=== PATIENT | male | born 1940 | race Caucasian/White ===

== ENCOUNTER 2023-11-03 17:39 | Emergency (ER) | payer MEDICARE, OTHER, SELFPAY ==
[2023-11-03 17:44] VITALS: BP 119/82
[2023-11-03] MEDS: PERCOCET 5/325 1 TABLET PO (18:41)
--- NOTE | 2023-11-03 19:10 | ED.MUSCINJ ---
Addendum entered and electronically signed by Rachid Mattson DO 11/03/23 22:13:
Wayne's called me states is not doing well at home
He apparently feels weak I encouraged her to bring him back in to be evaluated
Reviewed with nursing they concur that he was feeling well before he left, his shoulder pain almost completely resolved after the shoulder injection
Original Note:
HPI-Injury
General
Chief Complaint: Musculo-Skeletal Complaint
Source: patient and spouse
Exam Limitations: none
Time Seen by Provider: 11/03/23 18:31
Nursing documentation reviewed up to this point in time: agreed with
Travel History
Have you had any contact with someone who has COVID-19?: No
Do you have any symptoms of coronavirus? Fever > 100 degrees, chills, cough, shortness of breath, sore throat, loss of taste or smell, muscle aches, or headache?: No
History of Present Illness-Injury
Is this injury a work related problem?: No
Is pt an associate of [facility]?: No
Initial Injury comments:
83-year-old male prior stroke left-sided weakness very active exercises lift weights pain in his right shoulder for 2 or 3 days became increasingly painful today no fever no nausea or vomiting, no direct trauma though he does lift weights over his
head, he takes Plavix, never had anything like this before, no chest pain or shortness of breath
Past History
Past History
ED Past Medical History: Cancer, CVA and Hypercholesterolemia
ED Past Surgical History: Cardiac (Ablation) and Other
Social History
Tobacco: Non-smoker
Alcohol: Occasional
Drug: None
Personal:
Living: with family
Employment: Retired
Review of Systems
Review of Systems
All Other Systems: Not applicable
Constitutional: Denies fever or fatigue
EENT: Reports no symptoms
Respiratory: Reports no symptoms
Cardiac: Reports no symptoms
ABD/GI: Reports no symptoms
Musculoskeletal: Reports joint pain
Neurological: Reports no symptoms
Endocrine: Reports no symptoms
Phy Exam
Physical Exam
Physical Exam:
Physical Exam
General: 83 male afebrile looks uncomfortable
Neck: No jaundice midline trachea
Heart: Regular
Lungs: no acute respiratory distress.
Neuro: alert and oriented. no focal neurological deficits
Skin: no rash
Psychiatric: well kept. interactive and cooperative
Extremities: Tender in the right shoulder with painful range of motion no crepitance no warmth
Injury Course
Orders/Labs/Results
Orders:
Orders
11/03/23 17:48
CR Shoulder, Trauma - Right Urgent
Comment:
Reason For Exam: pain
11/03/23 18:38
Oxycodone/Acetaminophen [Percocet 5/325] 1 tablet PO NOW STA
11/03/23 18:49
Triamcinolone Acetonide [Kenalog-10] 10 mg INTRAARTIC NOW STA
Procedures
Incision/Drainage/Joint Aspiration
Right Shoulder:
Anethesia: ethyl chloride
Preparation: cleaned with Betadine
Type of procedure: injection
Nature of site: other (Bursitis)
Additional information:
Sterile technique, timeout, verbal consent, posterior approach
18-gauge needle, 2 cc of Kenalog 3 cc of lidocaine 3 cc of Marcaine
Patient tolerated the procedure well
MDM/Problems Addressed
Differential Diagnosis Includes:
Bursitis, overuse, doubt septic joint
MDM/Problems Addressed:
Right shoulder pain
Chronic conditions affecting care: Neurological disorder
Acute Exacerbation and/or Progression of Chronic Illness: Neurological disorder
*Radiology
Radiology exam reviewed: radiology read reviewed
*Pulse Oximetry
Patient hypoxic: no
*City Carrier Interpretation
Rate: City Carrier- N/A
*Critical Care Note
Total Time (30-74mins, 75-104mins- exclusive of procedures): Not Applicable
Update Note
Update Note:
Update patient still with pain after Percocet
Requesting an injection which she tolerated well updated
ED Attending Note
-
Portions of this chart may have been created with voice recognition software.� Occasional wrong word or��sound alike� substitutions may have occurred due to the inherent limitations of voice recognition software.
Discharge Plan
Departure
Patient Disposition: Home (Routine Discharge)
Date of Disposition: 11/03/23
Time of Disposition: 19:46
Patient with high blood pressure during this ER visit?: No
Condition: Good
Discharge Problem:
Acute shoulder bursitis
Instructions: Bursitis ED
Prescriptions:
New
oxycodone 5 mg tablet
5 mg PO Q8H PRN (Reason: Pain) Qty: 14 0RF
No Action
acetaminophen 325 MG tablet
650 mg PO Q6HPRN PRN (Reason: mild pain) 0RF
furosemide 20 MG tablet
20 mg PO DAILY Qty: 60 0RF
calcium carbonate 200 MG tablet,chewable
200 mg PO DAILY
fluoxetine 10 MG capsule
10 mg PO DAILY@1300
lisinopril 2.5 MG tablet
2.5 mg PO DAILY@1300
amiodarone [Pacerone] 200 MG tablet
100 mg PO DAILY
Patient Comments:
clopidogrel 75 MG tablet
75 mg PO DAILY Qty: 90 5RF
spironolactone 25 MG tablet
12.5 mg PO MOWEFR Qty: 60 5RF
Rx Instructions:
Take 1/2 tablet [id number]
multivitamin Tablet
1 tab PO DAILY
cyanocobalamin (vitamin B-12) [Vitamin B-12] 1,000 mcg Tablet
1,000 mcg PO DAILY
coenzyme Q10 [CoQ-10] 100 mg Capsule
400 mg PO DAILY
cholecalciferol (vitamin D3) [Vitamin D3] 50 mcg (2,000 unit) Capsule
50 mcg PO DAILY
omega 6-ayx-qfw-fish oil [Fish Oil] 1,200 (144-216) mg Capsule
2 cap PO DAILY
psyllium husk [Metamucil] 0.4 gram Capsule
0.8 g PO QPM
aspirin 81 MG tablet,delayed release (DR/EC)
81 mg PO QPM
metoprolol succinate 25 MG tablet extended release 24 hr
12.5 mg PO DAILY
rosuvastatin [Crestor] 40 MG tablet
40 mg PO DAILY@1300
Interventions
Interventions:
*Risk Screen - Suicide Last Done: 11/03/23 18:36
*General Assessment Last Done: 11/03/23 18:36
*Neglect/Abuse Screening Last Done: 11/03/23 18:36
ED- Fall Risk Assessment Last Done: 11/03/23 18:37
*ED COVID-19 Vaccine History Last Done: 11/03/23 17:44
ED-Musculoskeletal Assessment Last Done: 11/03/23 18:37
== END 2023-11-03 20:46 | disposition home or self-care (01) ==
LOC: EMR 17:39
PROVIDERS: EMERGENCY PHYSICIAN Emergency Medicine; FAMILY PHYSICIAN Family Medicine
DX: M75.51 Bursitis of right shoulder (principal)
CPT/HCPCS: 99284; 64400; 73030

== ENCOUNTER 2023-11-03 21:53 | Emergency (ER) | payer MEDICARE, OTHER, SELFPAY ==
[2023-11-03 21:58] VITALS: BP 99/75
--- NOTE | 2023-11-03 22:12 | ED.GENMED ---
History of Present Illness
General
Chief Complaint: Weakness
Source: patient, records and spouse
Exam Limitations: none
Time Seen by Provider: 11/03/23 22:24
Nursing documentation reviewed up to this point in time: agreed with
Travel History
Have you had any contact with someone who has COVID-19?: No
Do you have any symptoms of coronavirus? Fever > 100 degrees, chills, cough, shortness of breath, sore throat, loss of taste or smell, muscle aches, or headache?: No
History of Present Illness
History of Present Illness:
83-year-old male seen by me earlier today with bursitis of the right shoulder treated with Percocet and a steroid/lidocaine/bupivacaine intra-articular injection was feeling better at time of discharge called me states he was unsteady she could
not get him up I recommended that she bring her back here to be evaluated, here he looks comfortable, smiling states he feels much better, no fever chills no chest pain no headaches moving all extremities though his right shoulder still is giving
him some pain his pacemaker, suffers from urinary incontinence,
Past History
Past History
ED Past Medical History: Cancer, CVA and Hypercholesterolemia
ED Past Surgical History: Cardiac (Ablation) and Other
Social History
Tobacco: Non-smoker
Alcohol: Occasional
Drug: None
Personal:
Living: with family
Employment: Retired
Review of Systems
Review of Systems
All Other Systems: Not applicable
Constitutional: Denies fever or fatigue
EENT: Reports no symptoms
Respiratory: Reports no symptoms
Cardiac: Reports no symptoms
ABD/GI: Reports no symptoms
: Reports no symptoms
Musculoskeletal: Reports no symptoms
Neurological: Reports dizzy and weakness; Denies headache
Phy Exam
Physical Exam
Physical Exam:
Physical Exam
General: no apparent distress, not acutely ill
Neck: No tongue biting smiling
Heart: Regular
Lungs: no acute respiratory distress. clear bilaterally
Abdomen: Nontender
Neuro: Moving all extremities
Skin: no rash
Psychiatric: cooperative
Extremities: Mild pain with range of motion of the right shoulder
Course
Orders/Labs/Results
Orders:
Orders
11/03/23 22:06
Electrocardiogram (*1) Urgent
Reason for Study: Other
Other Reason for Exam: Possible Sepsis
EKG- Treatment ONCE
11/03/23 22:29
Complete Blood Count/With Diff Urgent
Comprehensive Metabolic Panel Urgent
Troponin I Urgent
11/03/23 22:31
Bedside Glucose- Treatment ONCE
Cardiac Monitoring- Treatment ONCE
0.9% Sodium Chloride 500 ml [Nss] 500 ml IV BOLUS
11/03/23 23:28
Urinalysis Reflex To Culture Urgent
Date Specimen was Collected: 11/03/23
Time Specimen was Collected: 22:44
11/04/23 00:00
CT Head W/o Iv Contrast Urgent
Reason For Exam: weakness
Abnormal Lab Results
11/03/23
22:29
WBC 11.3 H 10^3/uL
(4.8-10.8)
RBC 4.52 L 10^6/uL
(4.70-6.10)
Hct 38.3 L %
(39.0-52.0)
Abs Immat Gran (auto) 0.1 H 10^3/uL
(0-0.05)
Absolute Neuts (auto) 9.7 H 10^3/uL
(1.4-6.5)
Absolute Lymphs (auto) 0.7 L 10^3/uL
(1.2-3.4)
Absolute Monos (auto) 0.9 H 10^3/uL
(0.1-0.6)
Neutrophils % 85.5 H %
(42.2-75.2)
Lymphocytes % 6.1 L %
(20.5-51.1)
Sodium 132 L mmol/L
(135-145)
Glucose 136 H mg/dl
(70-99)
11/03/23 22:29
11/03/23 22:29
Vital Signs
Initial and Last Documented VS:
Initial Vital Signs
Temp Pulse Resp BP Pulse Ox
98 F 85 14 99/75 95
11/03/23 21:58 11/03/23 21:58 11/03/23 21:58 11/03/23 21:58 11/03/23 21:58
Last Documented Vital Signs
Temp Pulse Resp BP Pulse Ox
98 F 72 22 105/66 94
11/03/23 21:58 11/03/23 22:45 11/03/23 22:45 11/03/23 22:34 11/03/23 22:45
MDM/Problems Addressed
Differential Diagnosis Includes:
Reaction to Percocet toxic metabolic deconditioning, doubt stroke possible UTI electrolyte abnormality
MDM/Problems Addressed:
Ataxia
Chronic conditions affecting care: Neurological disorder
Acute Exacerbation and/or Progression of Chronic Illness: Neurological disorder
*Radiology
Radiology exam reviewed: preliminary read by ED provider
*Pulse Oximetry
Patient hypoxic: no
*EKG
Interpreted by ED Provider?: Yes
Interpretation: abnormal
Comparison EKG: no comparison EKG present
Heart Rate: 78
Rate: normal
Rhythm: ventricular paced
Ischemia: non-specific ST changes
*Area Coordinator Interpretation
Rate: normal
Interpretation: normal
Heart Rate: 78
Rhythm: ventricular paced
*Critical Care Note
Total Time (30-74mins, 75-104mins- exclusive of procedures): Not Applicable
Update Note
Update Note:
Update patient much improved from prior visit strong suspicion that his Percocet to be thorough we will check urine CT discussed extensively with
ED Attending Note
-
Portions of this chart may have been created with voice recognition software.� Occasional wrong word or��sound alike� substitutions may have occurred due to the inherent limitations of voice recognition software.
Discharge Plan
Departure
Patient Disposition: Home (Routine Discharge)
Date of Disposition: 11/03/23
Time of Disposition: 23:55
Patient with high blood pressure during this ER visit?: No
Condition: Good
Discharge Problem:
Dizziness
Instructions: Dizziness
Prescriptions:
No Action
acetaminophen 325 MG tablet
650 mg PO Q6HPRN PRN (Reason: mild pain) 0RF
furosemide 20 MG tablet
20 mg PO DAILY Qty: 60 0RF
calcium carbonate 200 MG tablet,chewable
200 mg PO DAILY
fluoxetine 10 MG capsule
10 mg PO DAILY@1300
lisinopril 2.5 MG tablet
2.5 mg PO DAILY@1300
amiodarone [Pacerone] 200 MG tablet
100 mg PO DAILY
Patient Comments:
clopidogrel 75 MG tablet
75 mg PO DAILY Qty: 90 5RF
spironolactone 25 MG tablet
12.5 mg PO MOWEFR Qty: 60 5RF
Rx Instructions:
Take 1/2 tablet [id number]
multivitamin Tablet
1 tab PO DAILY
cyanocobalamin (vitamin B-12) [Vitamin B-12] 1,000 mcg Tablet
1,000 mcg PO DAILY
coenzyme Q10 [CoQ-10] 100 mg Capsule
400 mg PO DAILY
cholecalciferol (vitamin D3) [Vitamin D3] 50 mcg (2,000 unit) Capsule
50 mcg PO DAILY
omega 2-qqi-hln-fish oil [Fish Oil] 1,200 (144-216) mg Capsule
2 cap PO DAILY
psyllium husk [Metamucil] 0.4 gram Capsule
0.8 g PO QPM
aspirin 81 MG tablet,delayed release (DR/EC)
81 mg PO QPM
metoprolol succinate 25 MG tablet extended release 24 hr
12.5 mg PO DAILY
rosuvastatin [Crestor] 40 MG tablet
40 mg PO DAILY@1300
oxycodone 5 mg tablet
5 mg PO Q8H PRN (Reason: Pain) Qty: 14 0RF
Referrals:
Judson Alonso MD [Family Provider] -
Activity Restrictions/Additional Instructions:
Follow-up with orthopedics, if you need oxycodone for pain use half a pill every 8 hours with food in your stomach
Interventions
Interventions:
*Risk Screen - Suicide Last Done: 11/03/23 21:58
*General Assessment Last Done: 11/03/23 21:58
*Neglect/Abuse Screening Last Done: 11/03/23 21:58
ED- Fall Risk Assessment Last Done: 11/03/23 22:37
ED- Cardiac Assessment Last Done: 11/03/23 22:37
ED- Neurological Assessment Last Done: 11/03/23 22:37
ED- Pulmonary Assessment Last Done: 11/03/23 23:38
[2023-11-03 22:34] VITALS: BP 105/66
[2023-11-03 22:36] VITALS: BMI 24.8
[2023-11-03 22:39] LABS: % Basophils 0.3 % (0-2); % Eosinophils 0.2 % (0-6); % Immature Granulocytes 0.4 % (0-0.5); % Lymphocytes 6.1 % (20.5-51.1); % Monocytes 7.5 % (1.7-9.3); % Neutrophils 85.5 % (42.2-75.2); Absolute Immature Granulocytes 0.1 10^3/uL (0-0.05); Absolute Lymphocytes 0.7 10^3/uL (1.2-3.4); Absolute Monocytes 0.9 10^3/uL (0.1-0.6); Absolute Neutrophils 9.7 10^3/uL (1.4-6.5); Hematocrit 38.3 % (39.0-52.0); Hemoglobin 13.3 g/dL (13.0-18.0); Mean Corp Hgb Conc. 34.7 g/dL (33.0-37.0); Mean Corpuscular Hgb 29.4 pg (27.0-31.0); Mean Corpuscular Volume 84.7 fL (80.0-94.0); Mean Platelet Volume 8.2 fL (7.4-10.4); Nucleated Red Blood Cells % 0 % (-); Platelet Count 180 10^3/uL (130-400); Red Blood Cell Count 4.52 10^6/uL (4.70-6.10); Red Cell Dist. Width 14.2 % (11.5-14.5); White Blood Cell Count 11.3 10^3/uL (4.8-10.8)
[2023-11-03 23:00] VITALS: BP 97/39
[2023-11-03 23:06] LABS: ALT (SGPT) 25 U/L (0-50); AST (SGOT) 33 U/L (17-59); Albumin 4.1 g/dl (3.5-5.0); Alkaline Phosphatase 79 U/L (38-126); Blood Urea Nitrogen 16 mg/dl (9-20); Calcium 8.8 mg/dl (8.4-10.2); Carbon Dioxide 26 mmol/L (22-30); Chloride 98 mmol/L (98-107); Estimated Creatinine Clearance 60 ml/min; Glucose 136 mg/dl (70-99); Potassium 3.8 mmol/L (3.5-5.1); Sodium 132 mmol/L (135-145); Total Bilirubin 0.8 mg/dl (0.2-1.3); Total Protein 7.3 g/dl (6.3-8.2); eGFR > 60.00
[2023-11-03 23:17] LABS: Troponin I < 0.012 ng/ml
[2023-11-03] MEDS: NSS 500 IV (23:22)
[2023-11-04 00:03] LABS: Urine Albumin Trace (Neg - Trace); Urine Bilirubin Negative (Negative); Urine Character Clear (Clear); Urine Color Yellow; Urine Glucose Negative (Negative); Urine Ketone 3+ (Negative); Urine Leukocyte Negative (Negative); Urine Nitrite Negative (Negative); Urine Occult Blood Negative (Negative); Urine Urobilinogen Negative (Neg - 1+)
[2023-11-04 01:01] VITALS: BP 108/48
--- NOTE | 2023-11-04 01:26 | EDRN ---
Patient was able to ambulate around room with ease, no further complaints, will be discharged home.
== END 2023-11-04 01:46 | disposition home or self-care (01) ==
LOC: EMR 21:53
PROVIDERS: EMERGENCY PHYSICIAN Emergency Medicine; FAMILY PHYSICIAN Family Medicine
DX: R53.1 Weakness (principal); R42 Dizziness and giddiness; Z86.73 Personal history of transient ischemic attack (TIA), and cerebral infarction without residual deficits
CPT/HCPCS: 99285; 96360; 96361; 70450; 80053; 81003; 84484; 85025; 93005

== ENCOUNTER 2024-02-21 10:48 | Outpatient (RCR) | payer MEDICARE, OTHER, SELFPAY | END 2024-02-21 23:59 | disposition home or self-care (01) | LOC: RPT 10:48 | PROVIDERS: ATTENDING PHYSICIAN Family Medicine | DX: F01.53 Vascular dementia, unspecified severity, with mood disturbance (principal); I69.854 Hemiplegia and hemiparesis following other cerebrovascular disease affecting left non-dominant side (principal); Z73.6 Limitation of activities due to disability; R26.89 Other abnormalities of gait and mobility; I69.890 Apraxia following other cerebrovascular disease; I69.818 Other symptoms and signs involving cognitive functions following other cerebrovascular disease | CPT/HCPCS: 96125; 97110; 97112; 97116; 97129; 97130; 97163; 97530 ==

== ENCOUNTER 2024-03-24 12:30 | Outpatient (RCR) | payer MEDICARE, OTHER, SELFPAY | END 2024-03-24 23:59 | disposition home or self-care (01) | LOC: RPT 12:30 | PROVIDERS: ATTENDING PHYSICIAN Family Medicine | DX: F01.53 Vascular dementia, unspecified severity, with mood disturbance (principal); I69.319 Unspecified symptoms and signs involving cognitive functions following cerebral infarction (principal); I69.311 Memory deficit following cerebral infarction; R26.89 Other abnormalities of gait and mobility; I69.328 Other speech and language deficits following cerebral infarction; I69.854 Hemiplegia and hemiparesis following other cerebrovascular disease affecting left non-dominant side; R48.2 Apraxia; I69.890 Apraxia following other cerebrovascular disease; I69.398 Other sequelae of cerebral infarction; I69.818 Other symptoms and signs involving cognitive functions following other cerebrovascular disease; Z73.6 Limitation of activities due to disability; I69.354 Hemiplegia and hemiparesis following cerebral infarction affecting left non-dominant side | CPT/HCPCS: 97110; 97112; 97116; 97129; 97130; 97530 ==

== ENCOUNTER 2024-04-11 12:21 | Outpatient (RCR) | payer MEDICARE, OTHER, SELFPAY | END 2024-04-11 23:59 | disposition home or self-care (01) | LOC: RPT 12:21 | PROVIDERS: ATTENDING PHYSICIAN Family Medicine | DX: I69.354 Hemiplegia and hemiparesis following cerebral infarction affecting left non-dominant side (principal); I69.390 Apraxia following cerebral infarction; I69.854 Hemiplegia and hemiparesis following other cerebrovascular disease affecting left non-dominant side; R26.89 Other abnormalities of gait and mobility; Z73.6 Limitation of activities due to disability; F01.53 Vascular dementia, unspecified severity, with mood disturbance; I69.890 Apraxia following other cerebrovascular disease; I69.818 Other symptoms and signs involving cognitive functions following other cerebrovascular disease | CPT/HCPCS: 97110; 97112; 97129; 97130; 97530 ==

== ENCOUNTER 2024-05-21 05:15 | Emergency (ER) | payer MEDICARE, OTHER, SELFPAY ==
[2024-05-21] VITALS (11 sets, daily range): BP systolic 80–120; BP diastolic 52–68; PULSE 60–76; O2SAT 96
[2024-05-21 05:42] LABS: % Basophils 0.4 % (0-2); % Immature Granulocytes 0.1 % (0-0.5); % Neutrophils 74.5 % (42.2-75.2); Absolute Eosinophils 0.1 10^3/uL (0-0.7); Absolute Lymphocytes 0.8 10^3/uL (1.2-3.4); Absolute Monocytes 1.1 10^3/uL (0.1-0.6); Absolute Neutrophils 5.7 10^3/uL (1.4-6.5); Hematocrit 40.2 % (39.0-52.0); Hemoglobin 13.7 g/dL (13.0-18.0); Mean Corp Hgb Conc. 34.1 g/dL (33.0-37.0); Mean Corpuscular Hgb 29.8 pg (27.0-31.0); Mean Corpuscular Volume 87.6 fL (80.0-94.0); Mean Platelet Volume 8.8 fL (7.4-10.4); Nucleated Red Blood Cells % 0 % (-); Platelet Count 169 10^3/uL (130-400); Red Blood Cell Count 4.59 10^6/uL (4.70-6.10); Red Cell Dist. Width 14.9 % (11.5-14.5); White Blood Cell Count 7.7 10^3/uL (4.8-10.8)
[2024-05-21 06:10] LABS: ALT (SGPT) 23 U/L (0-50); AST (SGOT) 31 U/L (17-59); Albumin 4.1 g/dl (3.5-5.0); Alkaline Phosphatase 75 U/L (38-126); Blood Urea Nitrogen 15 mg/dl (9-20); Calcium 9.1 mg/dl (8.4-10.2); Carbon Dioxide 27 mmol/L (22-30); Chloride 100 mmol/L (98-107); Estimated Creatinine Clearance 50 ml/min; Glucose 110 mg/dl (70-99); Potassium 3.7 mmol/L (3.5-5.1); Sodium 140 mmol/L (135-145); Total Bilirubin 0.7 mg/dl (0.2-1.3); Total Protein 7.2 g/dl (6.3-8.2); eGFR > 60.00
[2024-05-21 06:17] LABS: COVID-19 Antigen Positive (Negative)
[2024-05-21 06:20] LABS: Lactic Acid 0.9 mmol/L (0.7-2.0)
[2024-05-21] MEDS: TYLENOL 650 MG PO (06:28)
--- NOTE | 2024-05-21 06:51 | ED.GENMED ---
History of Present Illness
General
Chief Complaint: Change in Mental Status
Source: patient and spouse
Exam Limitations: none
Time Seen by Provider: 05/21/24 06:37
Nursing documentation reviewed up to this point in time: agreed with
History of Present Illness
History of Present Illness:
84-year-old male very pleasant with his is also very pleasant history of stroke right side of left-sided weakness has been rehabilitating making progress, URI for the past day or so yesterday had some weakness, last night woke up restless with
some confusion brought to the ER had fever subsequently tested positive for COVID did get a flu shot this year has not had a COVID shot yet, patient tells me he feels well, states he looks weak, is asking about antiviral medicines, states
she had a hard time getting him out of bed
Past History
Past History
ED Past Medical History: Cancer, CVA and Hypercholesterolemia
ED Past Surgical History: Cardiac (Ablation) and Other
Social History
Tobacco: Non-smoker
Alcohol: Occasional
Drug: None
Personal:
Living: with family
Employment: Retired
Review of Systems
Review of Systems
All Other Systems: Not applicable
Constitutional: Reports fever and fatigue
EENT: Reports no symptoms
Respiratory: Reports cough
Cardiac: Reports no symptoms
ABD/GI: Reports no symptoms
: Reports no symptoms
Neurological: Reports weakness
Phy Exam
Physical Exam
Physical Exam:
Physical Exam
General: Febrile elderly male in no acute
Neck: No tongue bite no jaw
Heart: Regular
Lungs: no acute respiratory distress. Diminished bilateral
Abdomen: Nontender
Neuro: alert and oriented. Left-sided weak
Skin: no rash
Psychiatric: cooperative
Extremities: no edema.
Sepsis
Sepsis Screening
Sepsis Assessment: Sepsis Ruled Out
Sepsis Screen
Sepsis Screen: Sepsis Ruled Out
Date: 05/21/24
Time: 09:23
Course
Orders/Labs/Results
Orders:
Orders
05/21/24 05:22
Urine Reflex Culture from UA [Urinalysis Reflex To Culture] Urgent
Date Specimen was Collected: 05/21/24
Time Specimen was Collected: 05:23
05/21/24 05:24
Complete Blood Count/With Diff Urgent
Comprehensive Metabolic Panel Urgent
05/21/24 05:44
EKG [Electrocardiogram (*1)] Urgent
Reason for Study: Fatigue / Weakness
EKG- Treatment ONCE
05/21/24 05:55
COVID-19 Antigen Urgent
Source: Nasal Swab
Lactate Level [Lactic Acid] Urgent
05/21/24 06:26
Acetaminophen [Tylenol] 650 mg .ROUTE .STK-MED ONE
05/21/24 06:28
Acetaminophen [Tylenol] 650 mg PO NOW STA
05/21/24 06:48
0.9% Sodium Chloride 1000 ml [Nss] 1,000 ml IV BOLUS
CR Chest - 2 Views Urgent
Comment:
Reason For Exam: fever
05/21/24 07:57
Physical Therapy Consult [Pt Eval And Treat] Urgent
Activity Level: Out of Bed-Early Mobility
Abnormal Lab Results
05/21/24 05/21/24
05:24 05:55
RBC 4.59 L 10^6/uL
(4.70-6.10)
RDW 14.9 H %
(11.5-14.5)
Absolute Lymphs (auto) 0.8 L 10^3/uL
(1.2-3.4)
Absolute Monos (auto) 1.1 H 10^3/uL
(0.1-0.6)
Lymphocytes % 10.0 L %
(20.5-51.1)
Monocytes % 14.0 H %
(1.7-9.3)
Glucose 110 H mg/dl
(70-99)
SARS-CoV-2 Antigen Positive A
(Negative)
05/21/24 05:24
05/21/24 05:24
Vital Signs
Initial and Last Documented VS:
Initial Vital Signs
Temp Pulse Resp BP Pulse Ox
100.7 F H 74 20 120/68 94
05/21/24 05:17 05/21/24 05:17 05/21/24 05:17 05/21/24 05:17 05/21/24 05:17
Last Documented Vital Signs
Temp Pulse Resp BP Pulse Ox
100.7 F H 96 16 101/61 95
05/21/24 05:17 05/21/24 09:00 05/21/24 09:00 05/21/24 08:54 05/21/24 08:46
MDM/Problems Addressed
Differential Diagnosis Includes:
Viral syndrome COVID flu pneumonia dehydration recrudescence
MDM/Problems Addressed:
Fever confusion
Chronic conditions affecting care: Neurological disorder
Acute Exacerbation and/or Progression of Chronic Illness: Neurological disorder
*Radiology
Radiology exam reviewed: preliminary read by ED provider
*Pulse Oximetry
Patient hypoxic: no
*Environmental Compliance Manager Interpretation
Rate: Environmental Compliance Manager- N/A
*Critical Care Note
Total Time (30-74mins, 75-104mins- exclusive of procedures): Not Applicable
Update Note
Update Note:
Update patient nontoxic, does have multiple comorbid conditions he is elderly symptoms appear consistent with COVID, confirmed by nasal swab start Tylenol fluids check chest x-ray, will review his outpatient meds with pharmacy to see if he is a
candidate for Paxlovid, long conversation with to discuss plan of care
Meds reviewed numerous interactions including Plavix amiodarone statin will not order Paxlovid at this time
Update 920 reviewed with physical therapy cleared for discharge, again will review with
ED Attending Note
-
Portions of this chart may have been created with voice recognition software.� Occasional wrong word or��sound alike� substitutions may have occurred due to the inherent limitations of voice recognition software.
Discharge Plan
Departure
Patient Disposition: Home (Routine Discharge)
Date of Disposition: 05/21/24
Time of Disposition: :
Patient with high blood pressure during this ER visit?: No
Covid-19: Confirmed COVID-19
Discharge Problem:
COVID
Instructions: Coronavirus Discharge with Telephone Follow Up, COVID-19 ED, COVID-19 in adults - Discharge instructions
Prescriptions:
No Action
acetaminophen 325 MG tablet
650 mg PO Q6HPRN PRN (Reason: mild pain) 0RF
furosemide 20 MG tablet
20 mg PO DAILY Qty: 60 0RF
calcium carbonate 200 MG tablet,chewable
200 mg PO DAILY
fluoxetine 10 MG capsule
10 mg PO DAILY@1300
lisinopril 2.5 MG tablet
2.5 mg PO DAILY@1300
amiodarone [Pacerone] 200 MG tablet
100 mg PO DAILY
Patient Comments:
clopidogrel 75 MG tablet
75 mg PO DAILY Qty: 90 5RF
spironolactone 25 MG tablet
12.5 mg PO MOWEFR Qty: 60 5RF
Rx Instructions:
Take 1/2 tablet agdjmy-sxr-eulmyi
multivitamin Tablet
1 tab PO DAILY
cyanocobalamin (vitamin B-12) [Vitamin B-12] 1,000 mcg Tablet
1,000 mcg PO DAILY
coenzyme Q10 [CoQ-10] 100 mg Capsule
400 mg PO DAILY
cholecalciferol (vitamin D3) [Vitamin D3] 50 mcg (2,000 unit) Capsule
50 mcg PO DAILY
omega 7-kze-cgp-fish oil [Fish Oil] 1,200 (144-216) mg Capsule
2 cap PO DAILY
psyllium husk [Metamucil] 0.4 gram Capsule
0.8 g PO QPM
aspirin 81 MG tablet,delayed release (DR/EC)
81 mg PO QPM
metoprolol succinate 25 MG tablet extended release 24 hr
12.5 mg PO DAILY
rosuvastatin [Crestor] 40 MG tablet
40 mg PO DAILY@1300
oxycodone 5 mg tablet
5 mg PO Q8H PRN (Reason: Pain) Qty: 14 0RF
Referrals:
Judson Alonso MD [Family Provider] - Next open appointment
Activity Restrictions/Additional Instructions:
Tylenol every 4 hours for fever
Encourage Wayne to drink plenty of fluids
Interventions
Interventions:
*Risk Screen - Suicide Last Done: 05/21/24 05:17
*General Assessment Last Done: 05/21/24 05:17
*Neglect/Abuse Screening Last Done: 05/21/24 05:17
ED- Fall Risk Assessment Last Done: 05/21/24 06:17
*ED COVID-19 Vaccine History Last Done: 05/21/24 05:57
ED- Pulmonary Assessment Last Done: 05/21/24 06:17
ED- Neurological Assessment Last Done: 05/21/24 06:17
ED- Cardiac Assessment Last Done: 05/21/24 06:17
ED Swallowing Screen Last Done: 05/21/24 06:17
Discharge Date and Time
Print Language: CHINESE
[2024-05-21] MEDS: NSS 1000 IV (07:06)
== END 2024-05-21 10:46 | disposition home or self-care (01) ==
LOC: EMR 05:15
PROVIDERS: Student in an Organized Health Care Education/Training Program; EMERGENCY PHYSICIAN Emergency Medicine; FAMILY PHYSICIAN Family Medicine
DX: U07.1 COVID-19 (principal); E78.00 Pure hypercholesterolemia, unspecified; I69.354 Hemiplegia and hemiparesis following cerebral infarction affecting left non-dominant side
CPT/HCPCS: 99282; 71046; 80053; 83605; 85025; 87811; 93005

== ENCOUNTER 2024-05-23 09:06 | Inpatient (IN) | payer MEDICARE, OTHER, SELFPAY ==
[2024-05-21 19:36] VITALS: BP 108/60
--- NOTE | 2024-05-21 20:51 | ED.GENMED ---
History of Present Illness
General
Chief Complaint: Social Service Referral
Time Seen by Provider: 05/21/24 20:51
History of Present Illness
History of Present Illness:
HPI: The patient came here around 4:00 this morning by ambulance due to a change in mental status. Throughout his stay in the emergency department this morning, he was diagnosed with COVID. Physical therapy saw him and felt that he may be able to
go home. However this evening, could not safely care for him. They called their doctor, Dr. Alonso PMD wanted him to come in here to be admitted as she cannot safely care for him.
EXAM:
GENERAL: Appears in no distress but appears generally weak and debilitated, borderline febrile
HEENT: Moist oral mucosa
CARDIOVASCULAR: Regular rate and rhythm
PULMONARY: No respiratory distress, breathing is nonlabored, equal and clear breath sounds
ABDOMEN: Soft and nontender with no peritoneal signs
NEUROLOGIC: The patient has evidence of dementia, not oriented to month or place, strength is weak on the left related to prior stroke
EXTREMITIES: Decreased active range of motion to the left upper and lower extremities
PYSCHIATRIC: Very limited historian, poor insight and judgment
TIME OF INITIAL ENCOUNTER: 9 PM
NUMBER AND COMPLEXITY OF PROBLEMS ADDRESSED AT THE ENCOUNTER
� Chronic conditions affecting care: Dementia, CVA with left-sided weakness, cardiomyopathy, CHF, CAD, prostate cancer
� Acute Exacerbation and/or Progression of Chronic Illness: This is an acute but worsening problem
� Differential Diagnosis includes: Failure to thrive, weakness related to COVID, intracranial pathology, worsening dementia
AMOUNT AND/OR COMPLEXITY OF DATA TO BE REVIEWED AND ANALYZED
� I performed an independent evaluation of and my interpretation is:
EKG:
CT: CT brain shows no acute abnormality but does show the old right-sided stroke
X-rays:
Laboratory Studies: Urinalysis shows trace ketones and blood but no clear sign of infection
Other:
� Review of other/old records: I reviewed the notes from earlier today including the CBC and chemistries that were relatively unremarkable
� Clinical information was obtained by an independent historian: I spoke to the at bedside
� Prescriptions/Medications Considered but not given:
� Further testing considered but not performed:
RISK OF COMPLICATIONS AND/OR MORBIDITY OR MORTALITY OF PATIENT MANAGEMENT
� Social determinants of health affecting care: Lives at home, is cared for by the who feels that she cannot care for him
� Discussion with other providers: Hospitalist, Dr. Gonzalez for admission
� Escalation of care including admission/observation vs risk of discharge considered: The patient appears rather weak and debilitated, he has continued to worsen throughout the day after being discharged from the emergency
department. feels that he needs to stay in the hospital and she tells me that his primary care doctor, Dr. Alonso also want him to stay. Suspect that weakness is at least partially related to COVID. Although he does have some heart failure,
he does not appear to be in acute pulmonary edema and may be slightly dehydrated as he did have some ketones in the urine, therefore was given a little bit of IV fluids.
Past History
Past History
ED Past Medical History: Cancer, CVA and Hypercholesterolemia
ED Past Surgical History: Cardiac (Ablation) and Other
Social History
Tobacco: Non-smoker
Alcohol: Occasional
Drug: None
Personal:
Living: with family
Employment: Retired
Phy Exam
Physical Exam
Physical Exam:
See HPI
Course
Orders/Labs/Results
Orders:
Orders
05/21/24 21:01
CT Head W/o Iv Contrast Urgent
Comment:
Reason For Exam: alt ms
05/21/24 21:38
Urinalysis Reflex To Culture Urgent
Date Specimen was Collected: 05/21/24
Time Specimen was Collected: 21:37
Urine Microscopic Reflex Cult Urgent
Urine Culture Urgent
SUHAS Source: U
Specimen Description:
Date Specimen was Collected: 05/21/24
Time Specimen was Collected: 21:37
05/21/24 21:46
0.9% Sodium Chloride 500 ml [Nss] 500 ml IV BOLUS
Abnormal Lab Results
05/21/24
21:38
Urine Ketones Trace A
(Negative)
Ur Occult Blood Reflex 4+ A
(Negative)
Leukocyte Esterase Rfl Trace A
(Negative)
Urine RBC 30-40 A /HPF
(0-2)
Urine Bacteria (Reflex) Many A
(Negative)
Urine Albumin (Reflex) 1+ A
(Neg - Trace)
Vital Signs
Initial and Last Documented VS:
Initial Vital Signs
Temp Pulse Resp BP Pulse Ox
100.0 F 72 20 108/60 96
05/21/24 19:36 05/21/24 19:36 05/21/24 19:36 05/21/24 19:36 05/21/24 19:36
Last Documented Vital Signs
Temp Pulse Resp BP Pulse Ox
100.0 F 72 20 108/60 96
05/21/24 19:36 05/21/24 19:36 05/21/24 19:36 05/21/24 19:36 05/21/24 19:36
*Critical Care Note
Total Time (30-74mins, 75-104mins- exclusive of procedures): Not Applicable
ED Attending Note
-
Portions of this chart may have been created with voice recognition software.� Occasional wrong word or��sound alike� substitutions may have occurred due to the inherent limitations of voice recognition software.
Discharge Plan
Departure
Prescriptions:
No Action
acetaminophen 325 MG tablet
650 mg PO Q6HPRN PRN (Reason: mild pain) 0RF
furosemide 20 MG tablet
20 mg PO DAILY Qty: 60 0RF
calcium carbonate 200 MG tablet,chewable
200 mg PO DAILY
fluoxetine 10 MG capsule
10 mg PO DAILY@1300
lisinopril 2.5 MG tablet
2.5 mg PO DAILY@1300
amiodarone [Pacerone] 200 MG tablet
100 mg PO DAILY
Patient Comments:
clopidogrel 75 MG tablet
75 mg PO DAILY Qty: 90 5RF
spironolactone 25 MG tablet
12.5 mg PO MOWEFR Qty: 60 5RF
Rx Instructions:
Take 1/2 tablet [id number]-etrzay
multivitamin Tablet
1 tab PO DAILY
cyanocobalamin (vitamin B-12) [Vitamin B-12] 1,000 mcg Tablet
1,000 mcg PO DAILY
coenzyme Q10 [CoQ-10] 100 mg Capsule
400 mg PO DAILY
cholecalciferol (vitamin D3) [Vitamin D3] 50 mcg (2,000 unit) Capsule
50 mcg PO DAILY
omega 3-pag-qjj-fish oil [Fish Oil] 1,200 (144-216) mg Capsule
2 cap PO DAILY
psyllium husk [Metamucil] 0.4 gram Capsule
0.8 g PO QPM
aspirin 81 MG tablet,delayed release (DR/EC)
81 mg PO QPM
metoprolol succinate 25 MG tablet extended release 24 hr
12.5 mg PO DAILY
rosuvastatin [Crestor] 40 MG tablet
40 mg PO DAILY@1300
oxycodone 5 mg tablet
5 mg PO Q8H PRN (Reason: Pain) Qty: 14 0RF
Referrals:
UNKNOWN - PT DOES,NOT KNOW [Unknown Provider] -
Interventions
Interventions:
*Risk Screen - Suicide Last Done: 05/21/24 19:34
Discharge Date and Time
Print Language: ITALIAN
[2024-05-21 21:43] LABS: Urine Albumin 1+ (Neg - Trace); Urine Bilirubin Negative (Negative); Urine Character Clear (Clear); Urine Color Yellow; Urine Glucose Negative (Negative); Urine Ketone Trace (Negative); Urine Leukocyte Trace (Negative); Urine Nitrite Negative (Negative); Urine Occult Blood 4+ (Negative); Urine Urobilinogen Negative (Neg - 1+)
[2024-05-21 21:56] LABS: Urine Mucus Moderate
[2024-05-21 21:57] LABS: Urine Bacteria Many (Negative); Urine Red Blood Cell 30-40 /HPF (0-2)
[2024-05-21] MEDS: NSS 500 IV (22:04)
[2024-05-21 22:20] VITALS: BP 89/54
[2024-05-21 22:31] VITALS: BMI 24.1
--- NOTE | 2024-05-21 22:59 | HPS.HSE ---
Family Physician
-
Family Physician: Judson Alonso
Chief Complaint
-
Weakness / Unsteady Gait
History of Present Illness
Patient is an 84y M with PMH significant for prostate cancer, VT s/p ablation, ASCVD and chronic gait dysfunction who presents to ED complaining of weakness and unsteady gait. states that patient has been more weak and unsteady than usual
for the past 4-5 days or so. Both patient and his have had 'cold symptoms' including runny nose and mild, non-productive cough. This AM they presented to the ED here where he tested positive for COVID-19. The remaineder of his evaluation was
unremarkable. He stood and ambulated with PT and was cleared for discharge to home. After return home, notes that he has been increasingly nsteady and she is not able to care for him in his current state.
They returned to the ED for further evaluation and treatment
At present, patient is resting comfortably in the ED in no acute distress. He denies any complaints at present.
Medical History
Past Medical History
Past Medical History: Reports Other
Additional Past Medical History:
ASCVD (CAD, CVA)
Chronic HFrEF
VT s/p Ablation
Prostate cancer s/p Prostatectomy and XRT
Nephrolithiasis
Past Surgical History: Reports Other
Additional Past Surgical History:
BiV AICD Placement
PTCA with Stent
Prostatectomy
VT Ablation
Left Ankle ORIF
Social History
Tobacco: Non-smoker
Alcohol: None
Drug: None
Personal:
Living: With Family
Family History
Family History: Not pertinent
Allergies / Home Medications
Allergies reflects when Allergies were last updated in [email or web address].
Home Medications with original date entered in [email or web address]
Allergy/Medication List:
Allergies
Allergy/AdvReac Type Severity Reaction Status Date / Time
ezetimibe [From Vytorin] Allergy Unknown Verified 05/21/24 19:39
simvastatin Allergy Unknown Verified 05/21/24 19:39
Home Medications
acetaminophen 325 mg tablet 650 mg (2 x 325 mg) PO Q6HPRN PRN mild pain 09/26/21
furosemide 20 mg tablet 20 mg PO DAILY Fluid retention/Swelling #60 tabs 09/26/21
lisinopril 2.5 mg tablet 2.5 mg PO Q48H 01/17/22
clopidogrel 75 mg tablet 75 mg PO DAILY #90 tabs 01/18/22
spironolactone 25 mg tablet 12.5 mg (1/2 x 25 mg) PO MOWEFR #60 tabs 01/18/22
aspirin 81 mg tablet,delayed release 81 mg PO HS Blood clot prevention/tx 06/12/22
cholecalciferol (vitamin D3) 50 mcg (2,000 unit) capsule (Vitamin D3) 50 mcg PO DAILY 06/12/22
cyanocobalamin (vitamin B-12) 1,000 mcg tablet (Vitamin B-12) 1,000 mcg PO DAILY 06/12/22
metoprolol succinate 25 mg tablet,extended release 24 hr 12.5 mg PO DAILY Heart Failure 06/12/22
omega 7-hfe-gzt-fish oil 1,200 mg (144 mg-216 mg) capsule (Fish Oil) 2 cap PO DAILY 06/12/22
psyllium husk 0.4 gram capsule (Metamucil) 0.8 g PO HS 06/12/22
rosuvastatin 40 mg tablet (Crestor) 40 mg PO HS 06/12/22
Prevagen 1 cap PO DAILY 05/21/24
amiodarone 100 mg tablet 100 mg PO DAILY 05/21/24
escitalopram oxalate 20 mg tablet 20 mg PO DAILY 05/21/24
therapeutic multivitamin 1 tab PO DAILY 05/21/24
Review of Systems
-
History Source: Patient and Family
A 12 point ROS was completed and negative except as noted: Yes
Constitutional: Reports Fever and Fatigue; Denies Chills
EENT: Reports Runny Nose; Denies Sore Throat
Respiratory: Reports Cough; Denies Trouble Breathing
Cardiac: Denies Chest Pain or Palpitations
Abdomen/GI: Denies Abdominal Pain, Nausea, Vomiting or Diarrhea
: Denies Dysuria or Frequency
Musculoskeletal: Denies Joint Pain, Joint Swelling or Edema
Neurological: Reports Other (Unsteady gait); Denies Dizzy or Headache
Physical Exam
Vital Signs
Vital Signs
Temp Pulse Resp BP Pulse Ox
100.0 F 63 18 89/54 97
05/21/24 19:36 05/21/24 22:20 05/21/24 22:20 05/21/24 22:20 05/21/24 22:20
Physical Exam
General: Other (84y M in no acute distress.)
HEENT: Moist mucous membranes and PERRLA
Respiratory: Other (Few scattered rales.)
Cardiac: S1/S2 and Regular Rhythm
GI: Soft, Non Tender, Non Distended and Normal Bowel Sounds
Musculoskeletal: No Clubbing, No Cyanosis and No Edema
Neuro: AO x 3
Impression/Plan
-
A/P: Patient is an 84y M with PMH significant for ASCVD, CHF and prostate cancer who presents to ED for evaluation of weakness / and unsteady gait.
COVID-19 Infection
Acute on Chronic Gait Dysfunction secondary to the above
- Observe overnight for further evaluation and treatment.
- Not hypoxemic, febrile, etc at present.
- No role for any COVID specific therapies at this time.
- PT / OT evaluations.
- Follow for clinical improvement.
- ? placement at discharge.
ASCVD
Chronic HFrEF
VT s/p Ablation
- Stable. Continue amiodarone and remainder of CV med regimen.
- No evidence of volume overload on exam.
- Hold lasix acutely. Follow I/Os, daily weights, etc.
Chronic Hypotension
- BP typically runs on the lower side per records.
- Hold diuretic as noted above.
- Continue CV meds with holding parameters and adjust as needed.
- ? trial of midodrine if patient has symptomatic hypotension / orthostasis.
Prostate Cancer s/p Prostatectomy and XRT
- Stable. No active bleeding, urinary symptoms, etc.
DVT Prophylaxis: Lovenox
Code Status: Full
--- NOTE | 2024-05-21 23:00 | PTCARENOTE ---
Pt received from ED at 2230. Pt AAOX2, confused at times, cooperative and able to walk into room with cane and x2 assistance. Pt placed on bed alarm and MedSitter placed in room due to concussion. Pt presented with clamp on penis. Pt states the
clamp is worn due to pt's PMH of prostate cancer and the clamp is worn during the day with a pad to prevent incontinence and is taken off during the night. Clamp was taken off and a condom catheter was placed for incontinence. Pt bed in lowest
position and call quick within reach. Pt informed of importance of call quick use, pt relays understanding. Will continue with current plan of care.
[2024-05-22 00:12] VITALS: BP 114/81; BP 116/82; BP 96/63; PULSE 74; PULSE 86; PULSE 91
[2024-05-22 00:14] VITALS: BMI 22.4
[2024-05-22 00:20] VITALS: BMI 22.4
[2024-05-22 07:14] LABS: Hematocrit 37.5 % (39.0-52.0); Hemoglobin 12.8 g/dL (13.0-18.0); Mean Corp Hgb Conc. 34.1 g/dL (33.0-37.0); Mean Corpuscular Hgb 29.8 pg (27.0-31.0); Mean Corpuscular Volume 87.2 fL (80.0-94.0); Mean Platelet Volume 9.1 fL (7.4-10.4); Platelet Count 142 10^3/uL (130-400); Red Cell Dist. Width 15.2 % (11.5-14.5)
[2024-05-22 07:45] VITALS: BP 112/51
[2024-05-22 08:32] LABS: Blood Urea Nitrogen 11 mg/dl (9-20); Calcium 8.6 mg/dl (8.4-10.2); Carbon Dioxide 26 mmol/L (22-30); Chloride 100 mmol/L (98-107); Estimated Creatinine Clearance 56 ml/min; Glucose 81 mg/dl (70-99); Potassium 3.9 mmol/L (3.5-5.1); Sodium 135 mmol/L (135-145); eGFR > 60.00
[2024-05-22] MEDS: TOPROL XL 12.5 MG PO (08:36)
[2024-05-22] MEDS: PLAVIX 75 MG PO (08:37)
[2024-05-22] MEDS: LEXAPRO 20 MG PO (08:37)
[2024-05-22] MEDS: PACERONE 100 MG PO (08:37)
[2024-05-22] MEDS: ROCEPHIN 1000 MG IV (09:33)
[2024-05-22] MEDS: STERILE WATER FOR INJECTION 10 ML IV (09:33)
[2024-05-22 10:58] VITALS: BP 112/52; PULSE 63; O2SAT 94
--- NOTE | 2024-05-22 12:46 | W.PN.HOSP.TC ---
Today's Communication/Plan
-
Monitor vital signs
see plan
Start ceftriaxone, follow urine culture
Follow fever curve
PT/OT
Spouse updated at bedside
Assessment / Plan
Assessment / Plan
General: Other (84y M in no acute distress.)
HEENT: Moist mucous membranes and PERRLA
Respiratory: Other (Few scattered rales.)
Cardiac: S1/S2 and Regular Rhythm
GI: Soft, Non Tender, Non Distended and Normal Bowel Sounds
Musculoskeletal: No Clubbing, No Cyanosis and No Edema
Neuro: AO x 3
Acute TME with underlying dementia likely 2/2 UTI and Covid infection
COVID-19 Infection
Acute on Chronic Gait Dysfunction secondary to the above and UTI
- Not hypoxemic
follow fever curve
- No role for any COVID specific therapies at this time. paxliovid will have med interaction
- PT / OT evaluations.
Ua noted; urien cx pending; started CFTX
ASCVD
Chronic HFrEF
VT s/p Ablation
- Stable. Continue amiodarone and remainder of CV med regimen.
- No evidence of volume overload on exam.
- Hold lasix acutely. Follow I/Os, daily weights, etc.
Chronic Hypotension
- BP typically runs on the lower side per records.
- Hold diuretic as noted above.
- Continue CV meds with holding parameters and adjust as needed.
- ? trial of midodrine if patient has symptomatic hypotension / orthostasis.
Prostate Cancer s/p Prostatectomy and XRT
- Stable. No active bleeding, urinary symptoms, etc.
DVT Prophylaxis: Lovenox
Code Status: Full
I spent a total of 52 minutes with the patient or on the floor. More than 50% of this time involved counseling and coordination of care.
Anticipated Discharge: > 48 hours
Subjective/Interval History
-
Date of Service: May 22, 2024
denies pain
Objective Data
-
Labs:
Laboratory Results
05/22/24
06:44
WBC 6.0
Hgb 12.8 L
Hct 37.5 L
Plt Count 142
Sodium 135
Potassium 3.9
Chloride 100
Carbon Dioxide 26
BUN 11
Creatinine 0.9
Glucose 81
Calcium 8.6
Vital Signs:
Vital Signs
Temp Pulse Resp BP Pulse Ox
97.5 F 65 18 112/51 89
05/22/24 07:45 05/22/24 07:45 05/22/24 07:45 05/22/24 07:45 05/22/24 07:45
I&O
05/21/24 05/22/24 05/23/24
06:59 06:59 06:59
Intake Total 240 / 240
Output Total 300 / 300
Balance -60 / -60
[2024-05-22 15:45] VITALS: BP 94/51
[2024-05-22] MEDS: LOVENOX 40 MG SC (16:11)
--- NOTE | 2024-05-22 16:30 | CM ---
Confused patient who lives with his Edel Natarajan who lives in a 1 story home with 0 step to enter and bed and bathroom on first floor.Pt on isolation for Covid. He is assisted in all activities of daily living.Spoke with on phone.Pt was
in out pt PT prior to admission.Will need PT OT for dc planning.[facility]FF[facility] letter explain ed to .
Out pt PT hx /No SNF hx
Pharmacy [facility]
PCP DR Judson Alonso
PLAN Will need PT OT eval for dc planning
[2024-05-22 20:30] VITALS: BMI 22.4
[2024-05-22] MEDS: ASPIR LOW (ENTERIC COATED) 81 MG PO (21:29)
[2024-05-22] MEDS: CRESTOR 40 MG PO (21:29)
[2024-05-22 23:07] VITALS: BP 105/56
[2024-05-23 08:08] LABS: Hematocrit 35.1 % (39.0-52.0); Hemoglobin 11.9 g/dL (13.0-18.0); Mean Corp Hgb Conc. 33.9 g/dL (33.0-37.0); Mean Corpuscular Hgb 28.7 pg (27.0-31.0); Mean Corpuscular Volume 84.8 fL (80.0-94.0); Mean Platelet Volume 9.1 fL (7.4-10.4); Platelet Count 147 10^3/uL (130-400); Red Blood Cell Count 4.14 10^6/uL (4.70-6.10); Red Cell Dist. Width 15.2 % (11.5-14.5); White Blood Cell Count 4.8 10^3/uL (4.8-10.8)
[2024-05-23 08:40] LABS: Blood Urea Nitrogen 15 mg/dl (9-20); Calcium 8.3 mg/dl (8.4-10.2); Carbon Dioxide 26 mmol/L (22-30); Chloride 101 mmol/L (98-107); Estimated Creatinine Clearance 63 ml/min; Glucose 90 mg/dl (70-99); Potassium 3.4 mmol/L (3.5-5.1); Sodium 136 mmol/L (135-145); eGFR > 60.00
[2024-05-23] MEDS: PLAVIX 75 MG PO (08:46)
[2024-05-23] MEDS: PACERONE 100 MG PO (08:47)
[2024-05-23] MEDS: LEXAPRO 20 MG PO (08:47)
[2024-05-23] MEDS: TOPROL XL 12.5 MG PO (08:49)
[2024-05-23] MEDS: VITAMIN B-12 1000 MCG PO (08:49)
[2024-05-23] MEDS: VITAMIN D3 (cholecalciferol) 50 MCG PO (08:50)
[2024-05-23 08:59] LABS: Absolute Neutrophils -Man Diff 2.5 10^3/uL (1.4-6.5); Band Neutrophils 3 % (0-3); Lymphocytes 27 % (20-51); Monocytes 18 % (2-9); Segmented Neutrophils 50 % (42-75)
[2024-05-23] MEDS: STERILE WATER FOR INJECTION 10 ML IV (08:59)
[2024-05-23 09:00] LABS: Atypical Lymphocytes 1 %
[2024-05-23] MEDS: ROCEPHIN 1000 MG IV (09:00)
[2024-05-23 09:02] LABS: Platelets Checked Yes; Total Cells Counted 100
[2024-05-23 09:03] LABS: Normal RBC Morphology Yes
[2024-05-23 09:08] VITALS: BP 100/53; BP 120/65; BP 128/66; PULSE 62; PULSE 67; PULSE 72
[2024-05-23] MEDS: KLOR-CON 20 MEQ PO (10:56)
--- NOTE | 2024-05-23 12:56 | W.PN.HOSP.TC ---
Today's Communication/Plan
-
Monitor vital signs
see plan
Replete potassium
PT/OT
Continue with antibiotics
Follow fever curve
Discussed with at bedside
Assessment / Plan
Assessment / Plan
General: Other (84y M in no acute distress.)
HEENT: Moist mucous membranes and PERRLA
Respiratory: Other (Few scattered rales.)
Cardiac: S1/S2 and Regular Rhythm
GI: Soft, Non Tender, Non Distended and Normal Bowel Sounds
Musculoskeletal: No Clubbing, No Cyanosis and No Edema
Neuro: AO x 3
Acute TME with underlying dementia likely 2/2 UTI and Covid infection
COVID-19 Infection
Acute on Chronic Gait Dysfunction secondary to the above and UTI
- Not hypoxemic
follow fever curve
- No role for any COVID specific therapies at this time. paxliovid will have med interaction
- PT / OT evaluations.
Ua noted; urien cx pending; started CFTX
ASCVD
Chronic HFrEF
VT s/p Ablation
- Stable. Continue amiodarone and remainder of CV med regimen.
- No evidence of volume overload on exam.
- Hold lasix acutely. Follow I/Os, daily weights, etc.
Hypokalemia
Replete
Chronic Hypotension
- BP typically runs on the lower side per records.
- Hold diuretic as noted above.
- Continue CV meds with holding parameters and adjust as needed.
- ? trial of midodrine if patient has symptomatic hypotension / orthostasis.
Prostate Cancer s/p Prostatectomy and XRT
- Stable. No active bleeding, urinary symptoms, etc.
DVT Prophylaxis: Lovenox
Code Status: Full
PT/OT
Anticipated Discharge: Within 24 hours
Subjective/Interval History
-
Date of Service: May 23, 2024
denies pain
Objective Data
-
Labs:
Laboratory Results
05/23/24
07:04
WBC 4.8
Hgb 11.9 L
Hct 35.1 L
Plt Count 147
Sodium 136
Potassium 3.4 L
Chloride 101
Carbon Dioxide 26
BUN 15
Creatinine 0.8
Glucose 90
Calcium 8.3 L
Vital Signs:
Vital Signs
Temp Pulse Resp BP Pulse Ox
97.8 F 67 20 100/53 97
05/23/24 09:09 05/23/24 08:49 05/23/24 09:09 05/23/24 08:49 05/23/24 09:09
I&O
05/22/24 05/23/24 05/24/24
06:59 06:59 06:59
Intake Total 240 / 240 1200 / 1200
Output Total 300 / 300 150 / 150
Balance -60 / -60 1050 / 1050
--- NOTE | 2024-05-23 13:06 | PTCARENOTE ---
Pt's came to visit pt. Pt's asked if she tested for COVID at home. Pt said, 'No, the doctors know and said I have it. I had the same symptoms as him.' Pt informed that she should not be visiting in the hospital with COVID. Pt was wearing a
mask. Pt's then preceded to say, 'I am going to the cafeteria to get lunch.' This nurse did not catch pt's to tell her she cannot go to the cafeteria. Nursing plastics supervisor Satya made aware pt's is in the cafeteria. will be told she
cannot go to the cafeteria any longer.
[2024-05-23 14:35] VITALS: BP 99/54
[2024-05-23 15:57] VITALS: BP 101/55
[2024-05-23] MEDS: LOVENOX 40 MG SC (18:01)
[2024-05-23] MEDS: CRESTOR 40 MG PO (22:36)
[2024-05-23] MEDS: ASPIR LOW (ENTERIC COATED) 81 MG PO (22:36)
[2024-05-23 23:15] VITALS: BP 103/56; BP 108/58; BP 109/59; PULSE 61; PULSE 68; PULSE 75
[2024-05-23 23:39] VITALS: BP 147/78
[2024-05-24 06:00] VITALS: BMI 22.9
[2024-05-24 07:49] LABS: % Basophils 0.8 % (0-2); % Eosinophils 4.3 % (0-6); % Immature Granulocytes 0.3 % (0-0.5); % Lymphocytes 38.2 % (20.5-51.1); % Monocytes 14.8 % (1.7-9.3); % Neutrophils 41.6 % (42.2-75.2); Absolute Eosinophils 0.2 10^3/uL (0-0.7); Absolute Lymphocytes 1.5 10^3/uL (1.2-3.4); Absolute Monocytes 0.6 10^3/uL (0.1-0.6); Absolute Neutrophils 1.7 10^3/uL (1.4-6.5); Hematocrit 34.4 % (39.0-52.0); Hemoglobin 11.9 g/dL (13.0-18.0); Mean Corp Hgb Conc. 34.6 g/dL (33.0-37.0); Mean Corpuscular Hgb 29.6 pg (27.0-31.0); Mean Corpuscular Volume 85.6 fL (80.0-94.0); Mean Platelet Volume 8.9 fL (7.4-10.4); Nucleated Red Blood Cells % 0 % (-); Platelet Count 133 10^3/uL (130-400); Red Blood Cell Count 4.02 10^6/uL (4.70-6.10)
[2024-05-24 08:05] VITALS: BP 112/62
[2024-05-24 08:19] LABS: Blood Urea Nitrogen 13 mg/dl (9-20); Calcium 8.4 mg/dl (8.4-10.2); Carbon Dioxide 26 mmol/L (22-30); Chloride 101 mmol/L (98-107); Estimated Creatinine Clearance 64 ml/min; Glucose 88 mg/dl (70-99); Potassium 3.7 mmol/L (3.5-5.1); Sodium 137 mmol/L (135-145); eGFR > 60.00
[2024-05-24] MEDS: VITAMIN B-12 1000 MCG PO (10:04)
[2024-05-24] MEDS: STERILE WATER FOR INJECTION 10 ML IV (10:04)
[2024-05-24] MEDS: PACERONE 100 MG PO (10:04)
[2024-05-24] MEDS: ROCEPHIN 1000 MG IV (10:04)
[2024-05-24] MEDS: TOPROL XL 12.5 MG PO (10:04)
[2024-05-24] MEDS: PLAVIX 75 MG PO (10:04)
[2024-05-24] MEDS: VITAMIN D3 (cholecalciferol) 50 MCG PO (10:04)
--- NOTE | 2024-05-24 10:17 | CM ---
CM received call from spouse noting pt for dc today
recommendations and spouse in agreement
[facility] to [facility]
Referral also sent to palliative care per her request
IMM verbally reviewed over phone
Copy placed in dc folder due to COVID precautions
VN order requested
Discharge Disposition- home with VN and palliative care referral
Palliative Care fax- [phone]
[2024-05-24] MEDS: LEXAPRO 20 MG PO (10:21)
--- NOTE | 2024-05-24 10:49 | W.PN.HOSP.TC ---
Today's Communication/Plan
-
Monitor vital signs see plan
PT/OT
Transition to p.o. antibiotics
Discharge today
Spouse updated at bedside
Time of discharge 38 minutes
Assessment / Plan
Assessment / Plan
General: Other (84y M in no acute distress.)
HEENT: Moist mucous membranes and PERRLA
Respiratory: Other (Few scattered rales.)
Cardiac: S1/S2 and Regular Rhythm
GI: Soft, Non Tender, Non Distended and Normal Bowel Sounds
Musculoskeletal: No Clubbing, No Cyanosis and No Edema
Neuro: AO x 3
Acute TME with underlying dementia likely 2/2 UTI and Covid infection
Mental status now at baseline
COVID-19 Infection
Acute on Chronic Gait Dysfunction secondary to the above and UTI
- Not hypoxemic
follow fever curve
- No role for any COVID specific therapies at this time. paxliovid will have med interaction
- PT / OT evaluations.
Ua noted; henry cx contaminant, given his response from ceftriaxone will transition to cefdinir
ASCVD
Chronic HFrEF
VT s/p Ablation
- Stable. Continue amiodarone and remainder of CV med regimen.
- No evidence of volume overload on exam.
- Hold lasix acutely. Follow I/Os, daily weights, etc.
Hypokalemia
Resolved
Chronic Hypotension
- BP typically runs on the lower side per records.
- Hold diuretic as noted above.
- Continue CV meds with holding parameters and adjust as needed.
- ? trial of midodrine if patient has symptomatic hypotension / orthostasis.
Prostate Cancer s/p Prostatectomy and XRT
- Stable. No active bleeding, urinary symptoms, etc.
DVT Prophylaxis: Lovenox
Code Status: Full
PT/OT recommended home health. Spouse okay with taking patient home
Anticipated Discharge: Today
Subjective/Interval History
-
Date of Service: May 24, 2024
Denies pain
Objective Data
-
Labs:
Laboratory Results
05/24/24
06:57
WBC 4.0 L
Hgb 11.9 L
Hct 34.4 L
Plt Count 133
Sodium 137
Potassium 3.7
Chloride 101
Carbon Dioxide 26
BUN 13
Creatinine 0.8
Glucose 88
Calcium 8.4
Vital Signs:
Vital Signs
Temp Pulse Resp BP Pulse Ox
97.6 F 64 20 112/62 96
05/24/24 08:05 05/24/24 08:05 05/24/24 08:05 05/24/24 08:05 05/24/24 08:05
I&O
05/23/24 05/24/24 05/25/24
06:59 06:59 06:59
Intake Total 1200 / 1200 480 / 480
Output Total 150 / 150
Balance 1050 / 1050 480 / 480
--- NOTE | 2024-05-24 10:54 | W.DCSUMMARY ---
Discharge Summary
Discharge Data
Date of Admission: 05/23/24
Date of Discharge: 05/24/24
-
Pending Results: No
Hospital Course
84-year-old male with past medical history of prostate cancer status post prostatectomy and radiation, hypertension, CHF, ventricular tachycardia status post ablation came to the hospital with toxic metabolic encephalopathy secondary to urinary
tract infection and COVID-19 infection. From COVID standpoint patient was not hypoxic and did not require any COVID therapy. For his urinary tract infection he was initially started on IV antibiotics which was later transitioned to oral prior to
discharge. He was also eval by physical therapy who recommended home health. Once his symptoms and mentation continue to improve, he was then discharged home with instructions to follow-up with all his physicians outpatient.
Discharge Plan
-
Patient Disposition: Home with Home Care
Discharge Diagnosis/Procedures: Acute TME with underlying dementia likely 2/2 UTI and Covid infection
Diet: As tolerated
Activity: As tolerated
Driving Restrictions: As prior to admission
Bathing Restrictions: None
Referrals:
Judson Alonso MD [Family Provider] - in less than 1 week
Prescriptions:
New
cefdinir 300 mg capsule
300 mg PO BID Qty: 14 0RF
Probiotic 10 billion cell capsule
10,000 mmu cells PO DAILY Qty: 10 0RF
Continued
acetaminophen 325 MG tablet
650 mg PO Q6HPRN PRN (Reason: mild pain) 0RF
furosemide 20 MG tablet
20 mg PO DAILY Qty: 60 0RF
clopidogrel 75 MG tablet
75 mg PO DAILY Qty: 90 5RF
spironolactone 25 MG tablet
12.5 mg PO MOWEFR Qty: 60 5RF
cyanocobalamin (vitamin B-12) [Vitamin B-12] 1,000 mcg Tablet
1,000 mcg PO DAILY
cholecalciferol (vitamin D3) [Vitamin D3] 50 mcg (2,000 unit) Capsule
50 mcg PO DAILY
omega 7-klx-lcv-fish oil [Fish Oil] 1,200 (144-216) mg Capsule
2 cap PO DAILY
psyllium husk [Metamucil] 0.4 gram Capsule
0.8 g PO HS
aspirin 81 MG tablet,delayed release (DR/EC)
81 mg PO HS
metoprolol succinate 25 MG tablet extended release 24 hr
12.5 mg PO DAILY
rosuvastatin [Crestor] 40 MG tablet
40 mg PO HS
therapeutic multivitamin Tablet
1 tab PO DAILY
escitalopram oxalate 20 mg Tablet
20 mg PO DAILY
amiodarone 100 mg Tablet
100 mg PO DAILY
Prevagen capsule
1 cap PO DAILY
Held
lisinopril 2.5 MG tablet
2.5 mg PO Q48H
Hold Instructions: restart when BP >120/80
Discharge Orders:
Discharge Patient (As Directed); Ordered 05/24/24
Ordered By: Joey Pisano
Discharge Date and Time
Discharge Date/Time: 05/24/24 11:52
Print Language: CITIZEN OF [place]
[2024-05-24 11:38] VITALS: BP 108/59
== END 2024-05-24 11:52 | disposition home health service (06) | DRG 689 ==
LOC: 4 WEST ACU 09:06
PROVIDERS: ADMITTING PHYSICIAN Hospitalist; ATTENDING PHYSICIAN Internal Medicine; EMERGENCY PHYSICIAN Emergency Medicine; FAMILY PHYSICIAN Family Medicine
DX: N39.0 Urinary tract infection, site not specified (principal); G92.8 Other toxic encephalopathy; U07.1 COVID-19; I42.9 Cardiomyopathy, unspecified; I69.354 Hemiplegia and hemiparesis following cerebral infarction affecting left non-dominant side; I50.22 Chronic systolic (congestive) heart failure; F03.90 Unspecified dementia, unspecified severity, without behavioral disturbance, psychotic disturbance, mood disturbance, and anxiety; I25.10 Atherosclerotic heart disease of native coronary artery without angina pectoris; R62.7 Adult failure to thrive; R82.4 Acetonuria; E87.6 Hypokalemia; E78.00 Pure hypercholesterolemia, unspecified; I11.0 Hypertensive heart disease with heart failure; N20.0 Calculus of kidney; R26.9 Unspecified abnormalities of gait and mobility; I95.89 Other hypotension; Z68.22 Body mass index [BMI] 22.0-22.9, adult; Z92.3 Personal history of irradiation; Z95.810 Presence of automatic (implantable) cardiac defibrillator; Z88.8 Allergy status to other drugs, medicaments and biological substances; Z79.02 Long term (current) use of antithrombotics/antiplatelets; Z79.82 Long term (current) use of aspirin; Z90.79 Acquired absence of other genital organ(s); Z85.46 Personal history of malignant neoplasm of prostate
CPT/HCPCS: 70450; 71046; 80048; 80053; 81003; 81015; 83605; 85025; 85027; 87086; 87811; 93005; 97116; 97162; 97166; 99284

== ENCOUNTER 2024-05-28 02:59 | Emergency (ER) | payer MEDICARE, OTHER, SELFPAY ==
[2024-05-28 03:05] VITALS: BP 131/80
[2024-05-28 03:07] VITALS: BP 131/80
--- NOTE | 2024-05-28 03:22 | ED.GENMED ---
History of Present Illness
<STEPHANIE Thapa - Last Filed: 05/28/24 05:01>
General
Chief Complaint: Change in Mental Status
Source: patient and significant other
Exam Limitations: dementia
Time Seen by Provider: 05/28/24 03:21
Nursing documentation reviewed up to this point in time: agreed with
History of Present Illness
History of Present Illness:
Patient is an 84 year old male with a PMH of dementia coming in with change in mental status x 2 hours. stated that in the middle of the night he grabbed her arm and started saying random things. This has never happened before. It lasted for a
couple minutes, called EMS who brought him here. He is currently back to baseline. He was here last week for a UTI and covid, is currently on cefdinir. He denies any current chest pain palpitations sob cough dysuria fever.
Patient has a PMH of dementia prostate cancer CHF CVA CAD HLD HTN WI. He took all of his daily medication today. He denies smoking but admits to occasional alcohol use.
Past History
<STEPHANIE Thapa - Last Filed: 05/28/24 05:01>
Past History
ED Past Medical History: Cancer, CVA and Hypercholesterolemia
ED Past Surgical History: Cardiac (Ablation) and Other
Social History
Tobacco: Non-smoker
Alcohol: Occasional
Drug: None
Personal:
Living: with family
Employment: Retired
Review of Systems
<STEPHANIE Thapa - Last Filed: 05/28/24 05:01>
Review of Systems
Allergies reviewed?: Yes
Other source history: family
Constitutional: Reports no symptoms
Respiratory: Reports no symptoms
Cardiac: Reports no symptoms
ABD/GI: Reports no symptoms
Neurological: Reports no symptoms
Phy Exam
<STEPHANIE Thapa - Last Filed: 05/28/24 05:01>
General Physical Exam
General Presentation: well appearing
General age: appears stated age
General Habitus: normal and elderly
General Mental: alert
Cardiovascular Exam
Cardiovascular Exam: regular rate/rhythm, no edema, no gallop, no JVD and no murmur
Pulmonary Exam
Pulmonary Exam: lungs clear, no respiratory distress, no rales, chest non tender, no crackles, no rhonchi, no stridor, no wheezing and no cough
Sensory
Sensory Exam: intact (sensation intact to light touch on upper and lower extremities b/l )
Course
Brandeelt;STEPHANIE Thapa - Last Filed: 05/28/24 05:01>
Orders/Labs/Results
Orders:
Orders
05/28/24 03:06
Urinalysis Reflex To Culture Urgent
05/28/24 03:12
Electrocardiogram (*1) Urgent
Reason for Study: Other
Other Reason for Exam: change of MS
05/28/24 03:13
EKG- Treatment ONCE
05/28/24 03:28
Complete Blood Count/With Diff Urgent
Comprehensive Metabolic Panel Urgent
Abnormal Lab Results
05/28/24
03:28
Absolute Monos (auto) 0.7 H 10^3/uL
(0.1-0.6)
Immature Gran % 0.8 H %
(0-0.5)
Monocytes % 13.9 H %
(1.7-9.3)
05/28/24 03:28
05/28/24 03:28
Vital Signs
Initial and Last Documented VS:
Initial Vital Signs
Temp Pulse Resp BP Pulse Ox
98.5 F 73 19 131/80 96
05/28/24 03:05 05/28/24 03:05 05/28/24 03:05 05/28/24 03:05 05/28/24 03:05
Last Documented Vital Signs
Temp Pulse Resp BP Pulse Ox
98.5 F 61 17 115/67 97
05/28/24 03:05 05/28/24 04:45 05/28/24 04:45 05/28/24 04:00 05/28/24 04:45
<Enoch Aguilar, DO - Last Filed: 05/28/24 04:47>
Orders/Labs/Results
Orders:
Orders
05/28/24 03:06
Urinalysis Reflex To Culture Urgent
05/28/24 03:12
Electrocardiogram (*1) Urgent
Reason for Study: Other
Other Reason for Exam: change of MS
05/28/24 03:13
EKG- Treatment ONCE
05/28/24 03:28
Complete Blood Count/With Diff Urgent
Comprehensive Metabolic Panel Urgent
Abnormal Lab Results
05/28/24
03:28
Absolute Monos (auto) 0.7 H 10^3/uL
(0.1-0.6)
Immature Gran % 0.8 H %
(0-0.5)
Monocytes % 13.9 H %
(1.7-9.3)
05/28/24 03:28
05/28/24 03:28
Vital Signs
Initial and Last Documented VS:
Initial Vital Signs
Temp Pulse Resp BP Pulse Ox
98.5 F 73 19 131/80 96
05/28/24 03:05 05/28/24 03:05 05/28/24 03:05 05/28/24 03:05 05/28/24 03:05
Last Documented Vital Signs
Temp Pulse Resp BP Pulse Ox
98.5 F 61 17 115/67 97
05/28/24 03:05 05/28/24 04:45 05/28/24 04:45 05/28/24 04:00 05/28/24 04:45
<STEPHANIE Thapa - Last Filed: 05/28/24 05:01>
MDM/Problems Addressed
Differential Diagnosis Includes:
altered mental status, encephalopathy,
MDM/Problems Addressed:
Patient is currently back to baseline mental status, order labs
<STEPHANIE Thapa - Last Filed: 05/28/24 05:01>
*Critical Care Note
Total Time (30-74mins, 75-104mins- exclusive of procedures): Not Applicable
ED Attending Note
<STEPHANIE Thapa - Last Filed: 05/28/24 05:01>
-
Portions of this chart may have been created with voice recognition software.� Occasional wrong word or��sound alike� substitutions may have occurred due to the inherent limitations of voice recognition software.
<Enoch Aguilar, - Last Filed: 05/28/24 04:47>
ED Attending Note
Patient seen and examined by attending physician: Yes
I performed the substantive portion of visit, reviewed & personally made and approve the management plan that is documented in note by myself or CESILIA.: Yes
ED Attending Note:
Pleasant 84-year-old male history of dementia woke up with altered mental status. states that he typically does not have this type of altered mental status. It only lasted a short while before symptoms resolved and returned to baseline.
states that a similar occurrence happened recently which resulted in a UTI diagnosis. Patient is still on antibiotics. Denies fever chills nausea or vomiting. Reports no chest pain or shortness of breath. Patient was seen in conjunction with the
PA student. I have reviewed and agree with the history and treatment plan presented. On my independent physical exam, patient is awake, alert, and at baseline. Heart is regular rate and rhythm. Lungs are clear to auscultation bilaterally without
reason rales or rhonchi present. Skin is warm and dry. Moves all 4 extremities.
Patient is at baseline. Labs are normal
Discharge Plan
Departure
Patient Disposition: Home (Routine Discharge)
Date of Disposition: 05/28/24
Time of Disposition: 04:37
Patient with high blood pressure during this ER visit?: No
Condition: Good
Discharge Problem:
Dementia
Instructions: Altered Mental Status (DC), BLOOD PRESSURE
Prescriptions:
No Action
acetaminophen 325 MG tablet
650 mg PO Q6HPRN PRN (Reason: mild pain) 0RF
furosemide 20 MG tablet
20 mg PO DAILY Qty: 60 0RF
lisinopril 2.5 MG tablet
2.5 mg PO Q48H
clopidogrel 75 MG tablet
75 mg PO DAILY Qty: 90 5RF
spironolactone 25 MG tablet
12.5 mg PO MOWEFR Qty: 60 5RF
cyanocobalamin (vitamin B-12) [Vitamin B-12] 1,000 mcg Tablet
1,000 mcg PO DAILY
cholecalciferol (vitamin D3) [Vitamin D3] 50 mcg (2,000 unit) Capsule
50 mcg PO DAILY
omega 6-tuf-bwa-fish oil [Fish Oil] 1,200 (144-216) mg Capsule
2 cap PO DAILY
psyllium husk [Metamucil] 0.4 gram Capsule
0.8 g PO HS
aspirin 81 MG tablet,delayed release (DR/EC)
81 mg PO HS
metoprolol succinate 25 MG tablet extended release 24 hr
12.5 mg PO DAILY
rosuvastatin [Crestor] 40 MG tablet
40 mg PO HS
therapeutic multivitamin Tablet
1 tab PO DAILY
escitalopram oxalate 20 mg Tablet
20 mg PO DAILY
amiodarone 100 mg Tablet
100 mg PO DAILY
Prevagen capsule
1 cap PO DAILY
cefdinir 300 mg capsule
300 mg PO BID Qty: 14 0RF
Probiotic 10 billion cell capsule
10,000 mmu cells PO DAILY Qty: 10 0RF
Referrals:
Judson Alonso MD [Family Provider] -
Interventions
Interventions:
*General Assessment Last Done: 05/28/24 03:05
*Neglect/Abuse Screening Last Done: 05/28/24 03:05
ED- Fall Risk Assessment Last Done: 05/28/24 03:05
*ED COVID-19 Vaccine History Last Done: 05/28/24 03:05
ED- Pulmonary Assessment Last Done: 05/28/24 03:10
ED- Neurological Assessment Last Done: 05/28/24 03:10
ED- Cardiac Assessment Last Done: 05/28/24 03:10
Discharge Date and Time
Print Language: ESTONIAN
[2024-05-28 03:36] LABS: % Basophils 0.6 % (0-2); % Eosinophils 3.3 % (0-6); % Immature Granulocytes 0.8 % (0-0.5); % Lymphocytes 33.4 % (20.5-51.1); % Monocytes 13.9 % (1.7-9.3); Absolute Eosinophils 0.2 10^3/uL (0-0.7); Absolute Lymphocytes 1.7 10^3/uL (1.2-3.4); Absolute Monocytes 0.7 10^3/uL (0.1-0.6); Absolute Neutrophils 2.5 10^3/uL (1.4-6.5); Hematocrit 43.3 % (39.0-52.0); Hemoglobin 14.7 g/dL (13.0-18.0); Mean Corp Hgb Conc. 33.9 g/dL (33.0-37.0); Mean Corpuscular Hgb 29.2 pg (27.0-31.0); Mean Corpuscular Volume 85.9 fL (80.0-94.0); Mean Platelet Volume 8.6 fL (7.4-10.4); Nucleated Red Blood Cells % 0 % (-); Platelet Count 183 10^3/uL (130-400); Red Blood Cell Count 5.04 10^6/uL (4.70-6.10); Red Cell Dist. Width 14.5 % (11.5-14.5); White Blood Cell Count 5.1 10^3/uL (4.8-10.8)
[2024-05-28 03:49] LABS: ALT (SGPT) 47 U/L (0-50); AST (SGOT) 58 U/L (17-59); Albumin 4.2 g/dl (3.5-5.0); Alkaline Phosphatase 80 U/L (38-126); Blood Urea Nitrogen 10 mg/dl (9-20); Calcium 9.4 mg/dl (8.4-10.2); Carbon Dioxide 28 mmol/L (22-30); Chloride 100 mmol/L (98-107); Glucose 91 mg/dl (70-99); Potassium 3.9 mmol/L (3.5-5.1); Sodium 141 mmol/L (135-145); Total Bilirubin 0.6 mg/dl (0.2-1.3); Total Protein 7.3 g/dl (6.3-8.2); eGFR > 60.00
[2024-05-28 04:00] VITALS: BP 115/67
[2024-05-28 05:00] VITALS: BP 116/66
== END 2024-05-28 05:10 | disposition home or self-care (01) ==
LOC: EMR 02:59
PROVIDERS: EMERGENCY PHYSICIAN Student in an Organized Health Care Education/Training Program; FAMILY PHYSICIAN Family Medicine
DX: F03.90 Unspecified dementia, unspecified severity, without behavioral disturbance, psychotic disturbance, mood disturbance, and anxiety (principal); I11.0 Hypertensive heart disease with heart failure; I50.9 Heart failure, unspecified; I25.10 Atherosclerotic heart disease of native coronary artery without angina pectoris; E78.00 Pure hypercholesterolemia, unspecified; Z86.73 Personal history of transient ischemic attack (TIA), and cerebral infarction without residual deficits
CPT/HCPCS: 99284; 80053; 85025; 93005

== ENCOUNTER → 2024-12-03 11:11 | Outpatient (REF) | payer MEDICARE, OTHER, SELFPAY | LOC: HWRAD 11:11 | PROVIDERS: ATTENDING PHYSICIAN Family Medicine | DX: M25.522 Pain in left elbow (principal) | CPT/HCPCS: 73080 ==

== ENCOUNTER 2025-06-23 17:54 | Inpatient (IN) | payer MEDICARE, OTHER, SELFPAY ==
[2025-06-23] VITALS (8 sets, daily range): BP systolic 94–121; BP diastolic 49–63; BMI 22.5; BMI 21.2
--- NOTE | 2025-06-23 11:32 | ED.GENMED ---
History of Present Illness
<ENDY Blue - Last Filed: 06/23/25 16:58>
General
Chief Complaint: Chest Pain
Source: spouse
Exam Limitations: dementia
Time Seen by Provider: 06/23/25 10:50
Nursing documentation reviewed up to this point in time: agreed with
History of Present Illness
History of Present Illness:
Patient is an 85-year-old male with dementia cardiomyopathy CHF pacemaker prostate cancer V. tach status post ablation presents to the ER for evaluation of chest pain. reports patient was sitting at home this morning around 8 AM complaining of
intermittent chest pain. She reports because of dementia it is difficult to assess patient. He currently is awake alert has no complaints. reports she actually fell last night and he assisted her up and she is wondering if he is having
musculoskeletal chest pain. Pt does have dementia and she reports that he seems to be getting worse. He has a history of prostate cancer and wears a penis clamp for incontinence.
Past History
<ENDY Blue - Last Filed: 06/23/25 16:58>
Past History
ED Past Medical History: Cancer, CVA and Hypercholesterolemia
ED Past Surgical History: Cardiac (Ablation) and Other
Social History
Tobacco: Non-smoker
Alcohol: Occasional
Drug: None
Personal:
Living: with family
Employment: Retired
Phy Exam
<ENDY Blue - Last Filed: 06/23/25 16:58>
General Physical Exam
General Presentation: no apparent distress
General age: appears stated age
General Skin: warm and dry
General Habitus: elderly
General Mental: confused
General Hydration: appears well hydrated
Cardiovascular Exam
Cardiovascular Exam: regular rate/rhythm, no murmur and normal peripheral pulses
Pulmonary Exam
Pulmonary Exam: lungs clear and no respiratory distress
Neurological Exam
Neurological Exam: alert and oriented x3
Musculoskeletal Exam
Musculoskeletal Exam: full ROM
Skin Exam
Skin Exam: normal color and warm/dry
Psychiatric Exam
Psychiatric Exam: normal mood/affect
Scores
<ENDY Blue - Last Filed: 06/23/25 16:58>
Heart Score for Chest Pain Patients
STEMI patient?: Not applicable
Course
<ENDY Blue - Last Filed: 06/23/25 16:58>
Orders/Labs/Results
Orders:
Orders
06/23/25 11:32
Electrocardiogram (*1) Stat
Reason for Study: Other
Other Reason for Exam: chest pain
Cardiac Monitoring- Treatment ONCE
EKG- Treatment ONCE
CR Chest - 2 Views Urgent
Comment:
Reason For Exam: cp
06/23/25 11:37
Complete Blood Count/With Diff Urgent
Comprehensive Metabolic Panel Urgent
Troponin I Urgent
06/23/25 12:44
Urinalysis Urgent
Date Specimen was Collected: 06/23/25
Time Specimen was Collected: 12:42
Urine Microscopic Urgent
Date Specimen was Collected: 06/23/25
Time Specimen was Collected: 12:42
06/23/25 15:02
CefTRIAXone [Rocephin] 1,000 mg IV NOW STA
06/23/25 15:03
Electrocardiogram (*1) Urgent
Reason for Study: Chest Pain
EKG- Treatment ONCE
06/23/25 15:07
Troponin I Urgent
06/23/25 15:42
Case Management Consult ONCE
Case Management Consult: Discharge Planning
Abnormal Lab Results
06/23/25 06/23/25
11:37 12:44
WBC 12.9 H 10^3/uL
(4.8-10.8)
RBC 4.60 L 10^6/uL
(4.70-6.10)
MCHC 32.9 L g/dL
(33.0-37.0)
RDW 15.1 H %
(11.5-14.5)
Absolute Neuts (auto) 9.5 H 10^3/uL
(1.4-6.5)
Absolute Monos (auto) 1.2 H 10^3/uL
(0.1-0.6)
Lymphocytes % 15.2 L %
(20.5-51.1)
Glucose 100 H mg/dl
(70-99)
Urine Ketones 2+ A
(Negative)
Urine Occult Blood 4+ A
(Negative)
Urine Nitrite Positive A
(Negative)
Ur Leukocyte Esterase 1+ A
(Negative)
Urine RBC 3-6 A /HPF
(0-2)
Urine WBC 11-15 A /HPF
(0-5)
Urine Bacteria Moderate A
(Negative)
Urine Albumin 2+ A
(Neg - Trace)
06/23/25 11:37
06/23/25 11:37
Vital Signs
Initial and Last Documented VS:
Initial Vital Signs
Temp Pulse Resp BP Pulse Ox
98.5 F 70 20 115/63 98
06/23/25 10:28 06/23/25 10:28 06/23/25 10:28 06/23/25 10:28 06/23/25 10:28
Last Documented Vital Signs
Temp Pulse Resp BP Pulse Ox
98.5 F 60 30 94/58 93
06/23/25 10:28 06/23/25 16:15 06/23/25 16:15 06/23/25 16:00 06/23/25 16:15
Car Greaser consulted with Physician
Car Greaser consulted with physician?: Yes
Name of Physician Consulted: Yamil
<Abe Varner, DO - Last Filed: 06/23/25 17:10>
Orders/Labs/Results
Orders:
Orders
06/23/25 11:32
Electrocardiogram (*1) Stat
Reason for Study: Other
Other Reason for Exam: chest pain
Cardiac Monitoring- Treatment ONCE
EKG- Treatment ONCE
CR Chest - 2 Views Urgent
Comment:
Reason For Exam: cp
06/23/25 11:37
Complete Blood Count/With Diff Urgent
Comprehensive Metabolic Panel Urgent
Troponin I Urgent
06/23/25 12:44
Urinalysis Urgent
Date Specimen was Collected: 06/23/25
Time Specimen was Collected: 12:42
Urine Microscopic Urgent
Date Specimen was Collected: 06/23/25
Time Specimen was Collected: 12:42
06/23/25 15:02
CefTRIAXone [Rocephin] 1,000 mg IV NOW STA
06/23/25 15:03
Electrocardiogram (*1) Urgent
Reason for Study: Chest Pain
EKG- Treatment ONCE
06/23/25 15:07
Troponin I Urgent
06/23/25 15:42
Case Management Consult ONCE
Case Management Consult: Discharge Planning
Abnormal Lab Results
06/23/25 06/23/25
11:37 12:44
WBC 12.9 H 10^3/uL
(4.8-10.8)
RBC 4.60 L 10^6/uL
(4.70-6.10)
MCHC 32.9 L g/dL
(33.0-37.0)
RDW 15.1 H %
(11.5-14.5)
Absolute Neuts (auto) 9.5 H 10^3/uL
(1.4-6.5)
Absolute Monos (auto) 1.2 H 10^3/uL
(0.1-0.6)
Lymphocytes % 15.2 L %
(20.5-51.1)
Glucose 100 H mg/dl
(70-99)
Urine Ketones 2+ A
(Negative)
Urine Occult Blood 4+ A
(Negative)
Urine Nitrite Positive A
(Negative)
Ur Leukocyte Esterase 1+ A
(Negative)
Urine RBC 3-6 A /HPF
(0-2)
Urine WBC 11-15 A /HPF
(0-5)
Urine Bacteria Moderate A
(Negative)
Urine Albumin 2+ A
(Neg - Trace)
06/23/25 11:37
06/23/25 11:37
Vital Signs
Initial and Last Documented VS:
Initial Vital Signs
Temp Pulse Resp BP Pulse Ox
98.5 F 70 20 115/63 98
06/23/25 10:28 06/23/25 10:28 06/23/25 10:28 06/23/25 10:28 06/23/25 10:28
Last Documented Vital Signs
Temp Pulse Resp BP Pulse Ox
98.5 F 60 30 94/58 93
06/23/25 10:28 06/23/25 16:15 06/23/25 16:15 06/23/25 16:00 06/23/25 16:15
<ENDY Blue - Last Filed: 06/23/25 16:58>
MDM/Problems Addressed
Differential Diagnosis Includes:
Not limited to ACS musculoskeletal strain, UTI dehydration
MDM/Problems Addressed:
Patient is a 68 yr male with dementia presented with chest pain today. Patient with dementia and very difficult historian and has no complaints here in the ER regarding chest pain. reports she fell yesterday and he lifted her off the ground
and she thinks this is likely muscular. He had negative cardiac troponin here in the ER no further complaints of chest pain. Patient had 2 negative cardiac troponins.
does report however that dementia has been getting worse and he is very confused and restless here in the ER. He was found to have a UTI. he has a penile clamp in place that reports is not new it is chronic recommended by urology ever
since his prostate cancer due to incontinence. This was removed. He does not have fevers white count is minimally elevated his urine does look infected. With confusion and the fact that does not feel that she can safely care for patient at
home with his current mental status would recommend admission IV antibiotics.
<ENDY Blue - Last Filed: 06/23/25 16:58>
*Radiology
Radiology exam reviewed: radiology read reviewed
*Pulse Oximetry
SaO2: 98
Oxygen Mode of Delivery: Room air
Patient hypoxic: no
*EKG
Interpreted by ED Provider?: Yes
Heart Rate: 60
Rate: normal
Rhythm: other (AV dual paced )
Ischemia: no ischemia
*Critical Care Note
Total Time (30-74mins, 75-104mins- exclusive of procedures): Not Applicable
ED Attending Note
<ENDY Blue - Last Filed: 06/23/25 16:58>
-
Portions of this chart may have been created with voice recognition software.� Occasional wrong word or��sound alike� substitutions may have occurred due to the inherent limitations of voice recognition software.
<Abe Varner DO - Last Filed: 06/23/25 17:10>
ED Attending Note
Patient seen and examined by attending physician: Yes
ED Attending Note:
I have reviewed and agree with history and treatment plan by ENDY Albrecht. My exam revealed 85-year-old male confused, no acute distress. Patient with mild UTI unclear etiology of chest pain, weakness and confusion. Admit for further
evaluation.
Discharge Plan
Departure
Patient Disposition: Admit
Date of Disposition: 06/23/25
Time of Disposition: 15:42
Admit to: Telemetry
Admit to doctor: hospitalist
Presentation/result/management discussed w/ accepting MD/DO: Hospitalist
Patient with high blood pressure during this ER visit?: No
Condition: Fair
Covid-19: Not Applicable
Discharge Problem:
Chest pain, Acute UTI
Prescriptions:
No Action
cyanocobalamin (vitamin B-12) [Vitamin B-12] 1,000 mcg Tablet
1,000 mcg PO DAILY
cholecalciferol (vitamin D3) [Vitamin D3] 50 mcg (2,000 unit) Capsule
50 mcg PO DAILY
psyllium husk [Metamucil] 0.4 gram Capsule
0.8 g PO HS
aspirin 81 MG tablet,delayed release (DR/EC)
81 mg PO HS
metoprolol succinate 25 MG tablet extended release 24 hr
12.5 mg PO DAILY
rosuvastatin [Crestor] 40 MG tablet
40 mg PO HS
escitalopram oxalate 20 mg Tablet
20 mg PO DAILY
amiodarone 100 mg Tablet
100 mg PO DAILY
Prevagen capsule
1 cap PO DAILY
clopidogrel 75 MG tablet
75 mg PO DAILY
spironolactone 25 MG tablet
12.5 mg PO MOWEFR
Referrals:
Judson Alonso MD [Family Provider, Family Practice]
Interventions
Interventions:
*Risk Screen - Suicide Last Done: 06/23/25 10:28
*General Assessment Last Done: 06/23/25 10:28
*ED- Fall Risk Assessment Last Done: 06/23/25 10:28
*ED COVID-19 Vaccine History Last Done: 06/23/25 10:28
*ED Influenza Vaccine History Last Done: 06/23/25 10:28
ED- Cardiac Assessment Last Done: 06/23/25 10:28
Discharge Date and Time
Print Language: BULGARIAN
[2025-06-23 11:49] LABS: Hematocrit 40.4 % (39.0-52.0); Hemoglobin 13.3 g/dL (13.0-18.0); Mean Corp Hgb Conc. 32.9 g/dL (33.0-37.0); Mean Corpuscular Volume 87.8 fL (80.0-94.0); Nucleated Red Blood Cells % 0 % (-); Platelet Count 196 10^3/uL (130-400); Red Cell Dist. Width 15.1 % (11.5-14.5)
[2025-06-23 12:05] LABS: ALT (SGPT) 19 U/L (0-50); AST (SGOT) 30 U/L (17-59); Albumin 4.4 g/dl (3.5-5.0); Alkaline Phosphatase 56 U/L (38-126); Blood Urea Nitrogen 18 mg/dl (9-20); Calcium 9.2 mg/dl (8.4-10.2); Carbon Dioxide 27 mmol/L (22-30); Chloride 103 mmol/L (98-107); Estimated Creatinine Clearance 49 ml/min; Glucose 100 mg/dl (70-99); Potassium 4.1 mmol/L (3.5-5.1); Sodium 139 mmol/L (135-145); Total Protein 7.7 g/dl (6.3-8.2); eGFR > 60.00
[2025-06-23 12:16] LABS: Troponin I < 0.012 ng/ml
[2025-06-23 12:55] LABS: Urine Character Clear (Clear)
[2025-06-23] MEDS: ROCEPHIN 1000 MG IV (15:11)
[2025-06-23 16:04] LABS: Troponin I < 0.012 ng/ml
--- NOTE | 2025-06-23 16:25 | HPS.HSE ---
Family Physician
-
Family Physician: Judson Alonso
Chief Complaint
-
Increased confusion from baseline chest wall pain
History of Present Illness
85-year-old male from home where he lives with his . He complains of intermittent chest pain soft tissue near his pacemaker site this morning around 8 AM however he helped his up off the floor when she fell yesterday and she is wondering
if it is muscular pain. She reports he has history of dementia which is becoming worse and not manageable for him to be at home with her. Patient states they have some assistance with palliative care at home but need more he has a penis clamp for
urinary incontinence due to history of prostate cancer status post prostatectomy. He follows with Dr. Knutson. His is taking home the penile clamp. The patient is normally oriented to name, Edel Natarajan needs assistance with all
ADLs the denies fever, chills, cough, shortness of breath, abdominal pain, nausea, vomiting, diarrhea.
He has past medical history dementia, chronic ambulatory dysfunction, CAD/stent, VT status post ablation, BiV AICD placement, chronic heart failure reduced EF, CVA, prostate cancer status post prostatectomy and XRT, nephrolithiasis
Medical History
Past Medical History
Past Medical History: Reports Other
Additional Past Medical History:
ASCVD (CAD, CVA)
Chronic HFrEF
VT s/p Ablation
Prostate cancer s/p Prostatectomy and XRT
Nephrolithiasis
Past Surgical History: Reports Other
Additional Past Surgical History:
BiV AICD Placement
PTCA with Stent
Prostatectomy
VT Ablation
Left Ankle ORIF
Social History
Tobacco: Non-smoker
Alcohol: None
Drug: None
Personal:
Living: With Family
Employment: Retired
Family History
Family History: Not pertinent
Allergies / Home Medications
Allergies reflects when Allergies were last updated in [employer].
Home Medications with original date entered in [employer]
Allergy/Medication List:
Allergies
Allergy/AdvReac Type Severity Reaction Status Date / Time
ezetimibe (From Vytorin) Allergy Unknown Verified 05/28/24 03:04
simvastatin Allergy Unknown Verified 05/28/24 03:04
Home Medications
aspirin 81 mg tablet,delayed release 81 mg PO HS Blood clot prevention/tx 06/12/22
cholecalciferol (vitamin D3) 50 mcg (2,000 unit) capsule (Vitamin D3) 50 mcg PO DAILY Supplement 06/12/22
cyanocobalamin (vitamin B-12) 1,000 mcg tablet (Vitamin B-12) 1,000 mcg PO DAILY Supplement 06/12/22
metoprolol succinate 25 mg tablet,extended release 24 hr 12.5 mg PO DAILY Heart Failure 06/12/22
psyllium husk 0.4 gram capsule (Metamucil) 0.8 g PO HS Constipation 06/12/22
rosuvastatin 40 mg tablet (Crestor) 40 mg PO HS High Cholesterol 06/12/22
Prevagen 1 cap PO DAILY Supplement 05/21/24
amiodarone 100 mg tablet 100 mg PO DAILY Arrhythmia 05/21/24
escitalopram oxalate 20 mg tablet 20 mg PO DAILY Mental Health/Anxiety 05/21/24
clopidogrel 75 mg tablet 75 mg PO DAILY Blood Clot Prevention/Tx 06/23/25
spironolactone 25 mg tablet 12.5 mg PO MOWEFR Fluid Retention/Swelling 06/23/25
Review of Systems
-
History Source: Patient and Family ( Edel Natarajan at bedside)
A 12 point ROS was completed and negative except as noted: Yes
Constitutional: Denies Fever or Chills
EENT: Denies Sore Throat or Mouth Swelling
Respiratory: Denies Cough or Trouble Breathing
Cardiac: Reports Chest Pain (Chest wall pain around pacemaker site on and off); Denies Diaphoresis or Syncope
Abdomen/GI: Denies Abdominal Pain, Nausea, Vomiting or Diarrhea
: Reports Incontinence (Chronic urinary wears penile clamp and depends)
Musculoskeletal: Denies Joint Pain or Muscle Pain
Skin: Denies Itching or Rash
Neurological: Denies Dizzy, Headache or Weakness
Endocrine: Reports No Symptoms
Hematologic/Lymphatic: Reports No Symptoms
Psych: Reports Calm
Physical Exam
Vital Signs
Vital Signs
Temp Pulse Resp BP Pulse Ox
98.5 F 60 42 108/56 97
06/23/25 10:28 06/23/25 14:30 06/23/25 14:30 06/23/25 14:00 06/23/25 13:45
Physical Exam
General: Comfortable and Conversant; No Fever or Chills
HEENT: NormoCephalic, Anicteric, Moist mucous membranes, Atraumatic, PERRLA, [place] Conjunctivae and No Ptosis
Respiratory: Clear; No Wheezes, Rales or Rhonchi
Cardiac: S1/S2, Regular Rhythm and Other (Left upper chest pacemaker present no surrounding tenderness to chest no current chest pain); No Murmur, Rub, Gallop or Peripheral Edema
Breast: Deferred by me
GI: Soft, Non Tender, Non Distended, Normal Bowel Sounds and No Hepatosplenomegaly
Rectal: Deferred by Provider
Genito-urinary: Deferred by me
Musculoskeletal: No Clubbing, No Cyanosis and No Edema
Skin: Warm and Dry; No Rash or Jaundice
Neuro: Awake, Alert, Oriented (To name, only), Nonfocal/grossly intact, Cranial Nerves Intact and No Sensory Deficits; No Slurred Speech, Facial Droop, Tremors or Sedated
Psych: Calm
Laboratory Results
-
06/23/25 11:37
06/23/25 11:37
Laboratory Results
Total Bilirubin 0.8 mg/dl (0.2-1.3) 06/23/25 11:37
AST 30 U/L (17-59) 06/23/25 11:37
ALT 19 U/L (0-50) 06/23/25 11:37
Alkaline Phosphatase 56 U/L (38-126) 06/23/25 11:37
Troponin I < 0.012 ng/ml 06/23/25 15:07
Data Reviewed
-
Lab Data: Labs Reviewed by me
Impression/Plan
-
Impression/plan:
Admit to MedSurg
#Increased confusion/sepsis secondary to UTI
Patient with history of Penile clamp for urinary incontinence follows with Dr. Knutson
UA moderate bacteria, WBC 11-15�+1 leukocytes positive nitrates plus for occult blood
WBC 12.9 no shift, afebrile 98.5, BP 94/50, RESP 34
- Follow urine culture
- IV Rocephin
- Follow CBC, CMP
#Hypotension likely due to sepsis from UTI
BP 94/58
-Will give 500 cc bolus hold further fluids at present time due to history of heart failure reduced EF
#Acute on chronic worsening Dementia
-Fall precaution
-Continue Prevagen 1 cap p.o. daily
-Consult case management as can no longer take care of at home
#Chest wall pain secondary to lifting off floor
Tylenol as needed
Troponin<0.012
EKG: AV dual paced 60 bpm, QTc 542 MS no significant change from May 2024
#Chronic ambulatory dysfunction
- PT/OT/case management consult
#History anxiety
Continue Lexapro 20 mg daily
#Prostate cancer status post prostatectomy and XRT
#CAD/stent
- Continue aspirin 81 mg daily, Plavix 75 mg daily,
- Hold metoprolol succinate 12.5 mg daily
- Continue Crestor 40 mg at bedtime
#VT status post ablation
- Continue amiodarone 100 mg daily
#BiV AICD placement
#Chronic heart failure reduced EF 36%
I/O, daily weights
- Hold spironolactone 12.5 mg [place] Wednesday [place]
2D echo 04/19/2023
1. Left ventricle: Mild to moderately reduced systolic function with an
estimated ejection fraction is 36% by Weems's method of disks. Mild
concentric LVH. Stage II diastolic dysfunction.
2. Right ventricle: Normal. ICD is present
3. Atria: Normal. An ICD is noted coursing the right atrial chamber
4. Mitral valve: Mild to moderate mitral regurgitation
5. Aortic valve: Mild aortic insufficiency
6. Tricuspid valve: Mild tricuspid regurgitation with estimated pulmonary
artery systolic pressures are 31 mmHg
7. No significant change when compared to the most recent echocardiogram from
04/17/2022.
#CVA
- Continue Plavix, aspirin, statin
#Constipation
Continue Metamucil at bedtime
#Nephrolithiasis history
DVT prophylaxis
--- NOTE | 2025-06-23 16:26 | EDCM ---
Received consult and reviewed chart .
Spoke with patient and his Edel Natarajan at ED bedside
Lives in a ranch style home with No MARILY
PLOF He needs assistance at home per . Ambulating with RW and cane
drives and manages all for him but she is interested in more help at home
CM provided a list of [facility] list of homemaker/companions to and discussed the benefits of having graphic designer service to assist. CM encouraged the to call and interview as needed
is in agreement that she would need more help at home
Per he receives home Palliative Care by [facility] 2/wk ? does not think it is home care but palliative care at home.
She will provide more information. adds that she spoke with CM and SW in the past . She has a list of homemakers at home also.
His son Samir lives in [place] and his dtr Roshni lives in [place]
Adds that his dtr Roshni helps out on weekends.
PCP Dr. Judson Alonso
RX plan yes
Pharmacy [facility] [address]
hx of [facility]
home palliative care via [facility] ? needs to get more info
no hx of SNF
DCP to be assessed but pt and want to go home with services if needed
CM will continue to follow up for dcp needs
--- NOTE | 2025-06-23 17:56 | W.PN.UPDATE ---
Update Note
Progress Note Update
I could not get any information from the patient has dementia
Information gathered by chart review and speaking with the ER staff and
This note serves as an addendum to the H&P by track repair person Lou James
HPI
85M with dementia, lives with seen at ER:
- intermittent chest pain soft tissue near PPM site this morning around 8 AM
- he helped his up off the floor when she fell yesterday and she is wondering if it is muscular pain.
- worsening dementia which is becoming worse and not manageable at home by her.
- some assistance with palliative care at home but need more
- Has penis clamp for urinary incontinence due to history of prostate cancer status post prostatectomy.
- P urologist: Dr. Knutson.
- denies fever, chills, cough, shortness of breath, abdominal pain, nausea, vomiting, diarrhea.
PHX:
HX dementia, chronic ambulatory dysfunction, CAD/stent, VT status post ablation, BiV AICD placement
Chr HFrEF CVA, prostate cancer status post prostatectomy and XRT, nephrolithiasis
Relevant VS
Temp Pulse Resp BP Pulse Ox
98.5 F 60 30 94/58 93
06/23/25 10:28 06/23/25 16:15 06/23/25 16:15 06/23/25 16:00 06/23/25 16:15
PE
General: Comfortable and Conversant
HEENT Moist mucous membranes,
Respiratory: Clear
Cardiac: S1/S2, , Left upper chest PPM
GI: Soft, Non Tender, Non Distended
MS: No Edema
Skin: Warm and Dry; No Rash or Jaundice
Neuro: Awake, Alert, Oriented (To name, only),NFND No Slurred Speech, Facial Droop, Tremors or Sedated
Psych: Calm
Relevant Data
06/23/25 06/23/25 06/23/25
11:37 12:44 15:07
WBC 12.9 H
Creatinine 1.1
eGFR > 60.00
Troponin I < 0.012
Urine Nitrite Positive A
Ur Leukocyte Esterase 1+ A
Urine RBC 3-6 A
Urine WBC 11-15 A
ASSESSMENT & PLAN
Presumed complicated UTI in male
Sepsis with hypotension and acute organ dysfunction ( AMS )
HX Penile clamp for urinary incontinence follows with Dr. Knutson
UA moderate bacteria, WBC 11-15�+1 leukocytes positive nitrates plus for occult blood
WBC 12.9 no shift, afebrile 98.5, BP 94/50, RESP 34
- Follow UCX
- Empiric IV CFTZ
- FU CBC, CMP
Hypotension likely due to sepsis from UTI
HX Chr HFrEF
- Hold Metoprolol and Spironolactone
- s/p IV NS 500 cc
- septic IVF
- Daily Wt
DVT Px: SQH
DNR
IP MS
--- NOTE | 2025-06-23 18:42 | PTCARENOTE ---
Pt admitted from ED. Pt AAOX1/2, confused, bed alarm applied. Will continue with current plan.
[2025-06-23] MEDS: NSS 500 IV (19:51)
[2025-06-23] MEDS: HEPARIN 5000 UNITS SC (19:53)
[2025-06-23] MEDS: METAMUCIL, KONSYL 1 PACKET PO (21:22)
[2025-06-23] MEDS: CRESTOR 40 MG PO (21:22)
[2025-06-24 06:00] VITALS: BMI 21.5
[2025-06-24 07:00] VITALS: BP 92/50
[2025-06-24 07:47] LABS: Hematocrit 34.4 % (39.0-52.0); Hemoglobin 11.7 g/dL (13.0-18.0); Mean Corp Hgb Conc. 34.0 g/dL (33.0-37.0); Mean Corpuscular Volume 86.6 fL (80.0-94.0); Nucleated Red Blood Cells % 0 % (-); Platelet Count 163 10^3/uL (130-400); Red Cell Dist. Width 15.0 % (11.5-14.5)
[2025-06-24] MEDS: OCUVITE SOFTGEL 1 CAP PO (08:09)
[2025-06-24] MEDS: VITAMIN B-12 1000 MCG PO (08:09)
[2025-06-24] MEDS: PLAVIX 75 MG PO (08:09)
[2025-06-24] MEDS: VITAMIN D3 (cholecalciferol) 50 MCG PO (08:10)
[2025-06-24] MEDS: LEXAPRO 20 MG PO (08:10)
[2025-06-24] MEDS: HEPARIN 5000 UNITS SC ×2 (08:10→19:56)
[2025-06-24 08:19] LABS: ALT (SGPT) 16 U/L (0-50); AST (SGOT) 30 U/L (17-59); Albumin 3.5 g/dl (3.5-5.0); Alkaline Phosphatase 51 U/L (38-126); Blood Urea Nitrogen 17 mg/dl (9-20); Calcium 8.6 mg/dl (8.4-10.2); Carbon Dioxide 26 mmol/L (22-30); Chloride 106 mmol/L (98-107); Estimated Creatinine Clearance 52 ml/min; Glucose 87 mg/dl (70-99); Potassium 3.3 mmol/L (3.5-5.1); Sodium 139 mmol/L (135-145); Total Protein 6.4 g/dl (6.3-8.2); eGFR > 60.00
--- NOTE | 2025-06-24 08:58 | W.PN.HOSP.TC ---
Addendum entered and electronically signed by Nakita Martinez MD 06/24/25 11:31:
Attending�addendum:
I saw and evaluated the patient. I reviewed the resident�s note and agree with findings and plan as documented in the resident�s note.��patient seen and examined at bedside, denies any chest pain or shortness of breath, no abdominal pain, no nausea,
no vomiting, no diarrhea or constipation.
Patient oriented x 1
Physical�exam:
GENERAL : Patient is awake, oriented x 1
HEENT: Nonicteric sclerae, PERRLA, EOMI. Oropharynx clear. Moist mucous membranes. Conjunctivae appear well perfused.
CHEST: Chest wall is nontender.
HEART: Regular rate and rhythm without murmurs.
LUNGS: Clear to auscultation bilaterally.
ABDOMEN: Soft, positive bowel sounds, nontender, no organomegaly.
RECTAL: Deferred.
MUSCLES/EXTREMITIES: No abnormal range of motion, no swelling.SKIN: No rash, no excessive bruising, petechiae, or purpura.
NEUROLOGIC: Cranial nerves II-XII intact without motor/sensory deficit.
�
Assessment/plan:
Severe sepsis with acute organ dysfunction.
Sepsis secondary to UTI.
Organ dysfunction in form of acute metabolic encephalopathy.
Continue IV antibiotic.
Pending culture.
Mental status slightly improved
Acute metabolic encephalopathy.
Mental status improved
Hypokalemia.
Replace and continue to monitor
Dementia.
Continue current meds
CODE STATUS: Full code
DVT prophylaxis: Heparin
Diet: Regular diet
Disposition: Continue antibiotic, pending culture
�
Total time spent on today�s encounter was 51 minutes which included time spent in counseling the patient/family regarding diagnosis and treatment plan as listed above, goals of care, and symptom management. Case was discussed with nursing staff,
specialists, and care coordinators/case management. All labs and imaging personally reviewed by me. Remainder the time spent in detailed review of previous records, lab data, imaging, and other medical provider documentation.
Original Note:
Today's Communication/Plan
-
Continue IV antibiotics, follow urine culture
K repletion
PT/OT/CM
Assessment / Plan
Assessment / Plan
ASSESSMENT:
85 y/o male with PMH of dementia, chronic ambulatory dysfunction, CAD with stent, VT s/p ablation, prostate cancer s/p prostatectomy and chronic HFrEF who presented to the ED with increased confusion from� baseline. states patient helped her
off the ground when she fell, and started having intermittent chest pain around 8 AM yesterday. She also states the dementia is worsening, and it is difficult for her to take care of him.�
Has penile clamp for urinary incontinence- Follows with Urology Dr. Knutson.
PLAN:
# Increased confusion from baseline
# Sepsis secondary to UTI
# Hypotension
UA shows WBC 11-15, moderate bacteria, positive leukocyte esterase, occult blood
WBC 12.9 06/23/25, decreased to 10.2 06/24/25
BP�92/50 06/24/25
s/p 500 cc bolus in ED, holding fluids due to history of HFrEF
Follow urine culture
Continue IV Rocephin
Trend CBC, CMP
# Hypokalemia
K 3.3 on 06/24/25, repleted with K 40 mEQ once
Continue to monitor/ Trend BMP
# Chest wall pain secondary to helping up from ground
Trop x2 negative
Continue Tylenol PRN
# Acute on chronic worsening dementia
Fall precautions
Continue Prevagen 1 capsule PO daily
CM consult as cannot take care of him/ needs help with daily activities
# Chronic ambulatory dysfunction
PT/OT consult
# Chronic HFrEF- Echo from 04/19/23 EF 36%- I/O, daily weights, hold spironolactone 12.5 mg MWF
# History of anxiety
Continue Lexapro 20 mg daily
# CAD with stent- continue aspirin, Plavix, Crestor. Hold metoprolol.�
# VT s/p ablation- continue amiodarone 100 mg daily
Anticipated Discharge: 24 - 48 hours
Subjective/Interval History
-
Date of Service: June 24, 2025
Patient evaluated at bedside this morning. He is not answering questions appropriately. Patient only oriented to self. Additional history obtained from around 11 AM-she states patient is moderately improved when compared to yesterday.
Objective Data
-
Labs:
Laboratory Results
06/24/25
06:36
WBC 10.2
Hgb 11.7 L
Hct 34.4 L
Plt Count 163
Sodium 139
Potassium 3.3 L
Chloride 106
Carbon Dioxide 26
BUN 17
Creatinine 1.0
Glucose 87
Calcium 8.6
Total Bilirubin 0.8
AST 30
ALT 16
Alkaline Phosphatase 51
Vital Signs:
Vital Signs
Temp Pulse Resp BP Pulse Ox
98.2 F 63 18 92/50 93
06/24/25 07:00 06/24/25 07:00 06/24/25 07:00 06/24/25 07:00 06/24/25 07:00
I&O
06/23/25 06/24/25 06/25/25
06:59 06:59 06:59
Intake Total 500 / 500
Balance 500 / 500
Review of Systems
-
Unable to obtain full review of systems at this time due to: Dementia
History Source: Patient
Physical Exam
-
General: Well Developed, Well Nourished, No Apparent Distress, Comfortable and Conversant
HEENT: Normocephalic, Atraumatic, Moist Mucous Membranes, Nose Appears Normal and Ears Appear Normal
Respiratory: Clear to Auscultation
Cardiac: Regular Rhythm and S1/S2
GI: Soft, Nontender, Nondistended and Normal Bowel Sounds
Musculoskeletal: No Clubbing, No Cyanosis and No Edema
Neuro: Awake, Alert and Oriented (to self only)
Psych: Calm
Data Reviewed
-
Labs: Labs Reviewed by me and Discussed with Physician
Old Records: Reviewed
[2025-06-24] MEDS: PACERONE 100 MG PO (09:24)
--- NOTE | 2025-06-24 10:56 | CM ---
CM reviewed chart, patient seen bedside with .
Per , patient is current with [facility] PT, OT, and Speech.
reports patient is current with [facility], referral placed in [facility] to confirm.
Therapy in to work with patient.
CM discussed if patient recommended rehab, will be agreeable- reports she would prefer patient return home with services.
Care ongoing, CM will continue to follow for all d/c planning needs.
Plan; SNF vs home with services ([facility] P, OT, Speech, PAL care)
[2025-06-24] MEDS: KCL ELIXIR 40 MEQ PO (11:02)
[2025-06-24 11:05] VITALS: BP 100/51; O2SAT 98
[2025-06-24 13:42] VITALS: BP 99/55
[2025-06-24] MEDS: STERILE WATER FOR INJECTION 10 ML IV (14:57)
[2025-06-24] MEDS: ROCEPHIN 1000 MG IV (14:58)
[2025-06-24 15:00] VITALS: BP 99/51
[2025-06-24] MEDS: ASPIR LOW (ENTERIC COATED) 81 MG PO (22:02)
[2025-06-24] MEDS: METAMUCIL, KONSYL 1 PACKET PO (22:02)
[2025-06-24] MEDS: CRESTOR 40 MG PO (22:02)
[2025-06-24 23:00] VITALS: BP 104/53
[2025-06-25 04:56] VITALS: BMI 21.4
[2025-06-25 06:47] LABS: Hematocrit 35.9 % (39.0-52.0); Hemoglobin 11.6 g/dL (13.0-18.0); Mean Corp Hgb Conc. 32.3 g/dL (33.0-37.0); Mean Corpuscular Volume 90.0 fL (80.0-94.0); Nucleated Red Blood Cells % 0 % (-); Platelet Count 163 10^3/uL (130-400); Red Cell Dist. Width 15.3 % (11.5-14.5)
[2025-06-25 07:03] VITALS: BP 97/55
[2025-06-25 07:18] LABS: ALT (SGPT) 20 U/L (0-50); AST (SGOT) 36 U/L (17-59); Albumin 3.2 g/dl (3.5-5.0); Alkaline Phosphatase 56 U/L (38-126); Blood Urea Nitrogen 19 mg/dl (9-20); Calcium 8.7 mg/dl (8.4-10.2); Carbon Dioxide 25 mmol/L (22-30); Chloride 108 mmol/L (98-107); Estimated Creatinine Clearance 57 ml/min; Glucose 100 mg/dl (70-99); Potassium 4.1 mmol/L (3.5-5.1); Sodium 136 mmol/L (135-145); Total Protein 6.2 g/dl (6.3-8.2); eGFR > 60.00
--- NOTE | 2025-06-25 07:52 | W.PN.HOSP.TC ---
Addendum entered and electronically signed by Nakita Martinez MD 06/25/25 13:34:
Attending�addendum:
I saw and evaluated the patient. I reviewed the resident�s note and agree with findings and plan as documented in the resident�s note.��patient seen and examined at bedside, denies any chest pain or shortness of breath, no abdominal pain, no nausea,
no vomiting, no diarrhea or constipation.
Patient oriented x 1
Discussed with at Bedside.
Physical�exam:
GENERAL : Patient is awake, oriented x 1
HEENT: Nonicteric sclerae, PERRLA, EOMI. Oropharynx clear. Moist mucous membranes. Conjunctivae appear well perfused.
CHEST: Chest wall is nontender.
HEART: Regular rate and rhythm without murmurs.
LUNGS: Clear to auscultation bilaterally.
ABDOMEN: Soft, positive bowel sounds, nontender, no organomegaly.
RECTAL: Deferred.
MUSCLES/EXTREMITIES: No abnormal range of motion, no swelling.SKIN: No rash, no excessive bruising, petechiae, or purpura.
NEUROLOGIC: Cranial nerves II-XII intact without motor/sensory deficit.
�
Assessment/plan:
Severe sepsis with acute organ dysfunction.
Sepsis secondary to UTI.
Organ dysfunction in form of acute metabolic encephalopathy.
Continue IV antibiotic.
Will be discharged on oral cefdinir
Mental status improved
Acute metabolic encephalopathy.
Mental status improved
Hypokalemia.
Replace and continue to monitor
Dementia.
Continue current meds
CODE STATUS: Full code
DVT prophylaxis: Heparin
Diet: Regular diet
Disposition: Discharge home
�
Total time spent on today�s encounter was 51 minutes which included time spent in counseling the patient/family regarding diagnosis and treatment plan as listed above, goals of care, and symptom management. Case was discussed with nursing staff,
specialists, and care coordinators/case management. All labs and imaging personally reviewed by me. Remainder the time spent in detailed review of previous records, lab data, imaging, and other medical provider documentation.
Original Note:
Today's Communication/Plan
-
Patient can be discharged, CM aware (SNF vs home with services)
Assessment / Plan
Assessment / Plan
ASSESSMENT:
A very pleasant 85 year old male with PMH of dementia, chronic ambulatory dysfunction, CAD with stent, VT s/p ablation, prostate cancer s/p prostatectomy and chronic HFrEF who presented to the ED with increased confusion from�his baseline.
states patient helped her off the ground when she fell, and started having intermittent chest pain around 8 AM 06/23. She also states the dementia is worsening, and it is difficult for her to take care of him.�
Has penile clamp for urinary incontinence- Follows with Urology Dr. Knutson.
PLAN:
# Sepsis secondary to UTI
# Acute metabolic encephalopathy
# Hypotension
UA 06/23/25 showed WBC 11-15, moderate bacteria, positive leukocyte esterase, occult blood
WBC 12.9 06/23/25; 10.2 06/24/25; 8.7 06/25/25
BP�92/50 06/24/25; 97/55 06/25/25
s/p 500 cc bolus in ED, holding fluids due to history of HFrEF
Urine cultures not obtained prior to starting IV antibiotics in ER
Continue IV Rocephin
Trend CBC, CMP
# Hypokalemia
K 3.3 on 06/24/25, repleted with K 40 mEQ once 06/24
K improved to 4.1 06/25/25
Monitor BMP
# Chest wall pain secondary to helping up from ground
Trop x2 negative
Continue Tylenol PRN
# Acute on chronic worsening dementia
Fall precautions
Continue Prevagen 1 capsule PO daily
CM consult as cannot take care of him/ needs help with daily activities
# Chronic ambulatory dysfunction
PT/OT consult
# Chronic HFrEF- Echo from 04/19/23 EF 36%- I/O, daily weights, hold spironolactone 12.5 mg MWF
# History of anxiety
Continue Lexapro 20 mg daily
# CAD with stent- continue aspirin, Plavix, Crestor. Hold metoprolol.�
# VT s/p ablation- continue amiodarone 100 mg daily
Anticipated Discharge: Within 24 hours
Subjective/Interval History
-
Date of Service: June 25, 2025
Patient evaluated at bedside this morning. He states he feels wonderful. He denies any pain in any part of the body. Patient responding to my questions in an improved manner compared to yesterday.
Objective Data
-
Labs:
Laboratory Results
06/25/25
06:14
WBC 8.7
Hgb 11.6 L
Hct 35.9 L
Plt Count 163
Sodium 136
Potassium 4.1
Chloride 108 H
Carbon Dioxide 25
BUN 19
Creatinine 0.9
Glucose 100 H
Calcium 8.7
Total Bilirubin 0.4
AST 36
ALT 20
Alkaline Phosphatase 56
Vital Signs:
Vital Signs
Temp Pulse Resp BP Pulse Ox
98.3 F 63 18 104/53 95
06/24/25 23:00 06/24/25 23:00 06/24/25 23:00 06/24/25 23:00 06/24/25 23:00
I&O
06/24/25 06/25/25 06/26/25
06:59 06:59 06:59
Intake Total 500 / 500 60 / 60
Balance 500 / 500 60 / 60
Review of Systems
-
Unable to obtain full review of systems at this time due to: Dementia
History Source: Patient
Physical Exam
-
General: Well Developed, Well Nourished, No Apparent Distress, Comfortable and Conversant
HEENT: Normocephalic, Atraumatic, Moist Mucous Membranes, Anicteric, Nose Appears Normal and Ears Appear Normal
Respiratory: Clear to Auscultation
Cardiac: Regular Rhythm and S1/S2
GI: Soft, Nontender, Nondistended, Normal Bowel Sounds and No Hepatosplenomegaly
Musculoskeletal: No Clubbing, No Cyanosis and No Edema
Skin: Warm
Neuro: Awake and Oriented (x1)
Psych: Calm
Data Reviewed
-
Labs: Labs Reviewed by me and Discussed with Physician
Old Records: Reviewed
[2025-06-25] MEDS: PLAVIX 75 MG PO (08:24)
[2025-06-25] MEDS: PACERONE 100 MG PO (08:24)
[2025-06-25] MEDS: LEXAPRO 20 MG PO (08:25)
[2025-06-25] MEDS: HEPARIN 5000 UNITS SC (08:25)
[2025-06-25 10:38] VITALS: BP 135/81
--- NOTE | 2025-06-25 12:21 | CM ---
Addendum entered by Hanny Choe 06/25/25 13:31:
Patient scheduled for 5:30 p.m. ambulance transport
Original Note:
CM reviewed chart, patient and seen bedside.
CM discussed therapy recommendations of SNF, not agreeable, wants to bring patient home with return of services.
CM provided additional private caregiver information, reports she does have some caregiver information and accepting of list.
reports [facility] has also sent a SW to home who has been helpful.
Patient will continue services with [facility], updates via [employer].
IMM verbally reviewed, provided with copy, placed in chart.
Patient will require ambulance transport home, address confirmed, no steps to enter.
CM will continue to follow.
Plan; home with , [facility] PT/OT, [facility]
--- NOTE | 2025-06-25 13:02 | W.DCSUMMARY ---
Addendum entered and electronically signed by Nakita Martinez MD 06/25/25 13:37:
Attending�addendum:
I saw and evaluated the patient. I reviewed the resident�s note and agree with findings and plan as documented in the resident�s note.��patient seen and examined at bedside, denies any chest pain or shortness of breath, no abdominal pain, no nausea,
no vomiting, no diarrhea or constipation.
Patient oriented x 1
Discussed with at Bedside.
Physical�exam:
GENERAL : Patient is awake, oriented x 1
HEENT: Nonicteric sclerae, PERRLA, EOMI. Oropharynx clear. Moist mucous membranes. Conjunctivae appear well perfused.
CHEST: Chest wall is nontender.
HEART: Regular rate and rhythm without murmurs.
LUNGS: Clear to auscultation bilaterally.
ABDOMEN: Soft, positive bowel sounds, nontender, no organomegaly.
RECTAL: Deferred.
MUSCLES/EXTREMITIES: No abnormal range of motion, no swelling.SKIN: No rash, no excessive bruising, petechiae, or purpura.
NEUROLOGIC: Cranial nerves II-XII intact without motor/sensory deficit.
�
Assessment/plan:
Severe sepsis with acute organ dysfunction.
Sepsis secondary to UTI.
Organ dysfunction in form of acute metabolic encephalopathy.
Continue IV antibiotic.
Will be discharged on oral cefdinir
Mental status improved
Acute metabolic encephalopathy.
Mental status improved
Hypokalemia.
Replace and continue to monitor
Dementia.
Continue current meds
CODE STATUS: Full code
DVT prophylaxis: Heparin
Diet: Regular diet
Disposition: Discharge home.
otal time spent on today�s encounter was 40 minutes which included time spent in counseling the patient/family regarding diagnosis and treatment plan as listed above, goals of care, and symptom management. Case was discussed with nursing staff,
specialists, and care coordinators/case management. All labs and imaging personally reviewed by me. Remainder the time spent in detailed review of previous records, lab data, imaging, and other medical provider documentation.
Original Note:
Documented by User: Enrique Castellano MD, Resident 06/25/25 13:15
Discharge Summary
Discharge Data
Date of Admission: 06/23/25
Date of Discharge: 06/25/25
-
Pending Results: No
Hospital Course
Discharging Physician : Dr. Nakita Martinez and Dr. Enrique Castellano
Disposition : Home with home care
Primary care physician : Dr. Judson Alonso
Principal Discharge diagnosis :
Sepsis secondary to UTI
Acute metabolic encephalopathy
Hypotension
Hypokalemia
Chest wall pain
Chronic Discharge diagnosis :
Chronic ambulatory dysfunction
Chronic HFrEF
Anxiety
CAD with stent
VT s/p ablation
Hospital Course : A pleasant 85 year old male with a past medical history of dementia, chronic ambulatory dysfunction, CAD with stent, VT s/p ablation, prostate cancer s/p prostatectomy and chronic HFrEF who presented to the ED with increased
confusion. stated that he appeared to be more confused from his baseline, and started having chest pain after helping her off the ground around 8 AM 06/23/25. also stated that she has been having difficulty taking care of him at home/ with
daily activities.
His UA on 06/23/25 was indicative of UTI; WBC count was 12.9 and initial BP was 92/50. Patient was started on IV Rocephin, and urine cultures were not obtained prior to starting IV antibiotics. He was given a 500 cc bolus of fluids in the ED for
hypotension, but further fluids were held due to history of HFrEF. Patient clinically improved over 2 days with IV Rocephin with WBC downtrending to 8.7 06/25/25. He had hypokalemia (K 3.3) on 06/24/25, and was repleted with K 40 mEq once; repeat K
on 06/25/25 was 4.1. Patient's chest pain had resolved by 06/25/25 and troponin x 2 were negative. Patient is to be discharged today with Ceftin 500 mg BID PO for 5 days, and case management has arranged home services for additional help at home.
Important imaging findings :
CXR 06/23/25: Mild left basilar subsegmental atelectasis. Otherwise clear lungs.
Discharge Plan
-
Patient Disposition: Home with Home Care
Discharge Diagnosis/Procedures: Sepsis secondary to UTI
Acute metabolic encephalopathy
Hypotension
Hypokalemia
Dementia
Condition: Fair
Diet: As tolerated
Activity: As tolerated
Driving Restrictions: As prior to admission
Bathing Restrictions: None
Blood Work: CBC, CMP in 1 week (obtain script from PCP)
Referrals:
Judson Alonso MD [Family Provider, [facility]]
Prescriptions:
New
cefdinir 300 mg capsule
300 mg PO BID Qty: 10 0RF
Continued
cyanocobalamin (vitamin B-12) [Vitamin B-12] 1,000 mcg Tablet
1,000 mcg PO DAILY
cholecalciferol (vitamin D3) [Vitamin D3] 50 mcg (2,000 unit) Capsule
50 mcg PO DAILY
psyllium husk [Metamucil] 0.4 gram Capsule
0.8 g PO HS
aspirin 81 MG tablet,delayed release (DR/EC)
81 mg PO HS
metoprolol succinate 25 MG tablet extended release 24 hr
12.5 mg PO DAILY
rosuvastatin [Crestor] 40 MG tablet
40 mg PO HS
escitalopram oxalate 20 mg Tablet
20 mg PO DAILY
amiodarone 100 mg Tablet
100 mg PO DAILY
Prevagen capsule
1 cap PO DAILY
clopidogrel 75 MG tablet
75 mg PO DAILY
spironolactone 25 MG tablet
12.5 mg PO MOWEFR
Discharge Orders:
Discharge Patient (As Directed); Ordered 06/25/25
Ordered By: Nakita Martinez
Discharge Date and Time
Print Language: CROATIAN

Documented by User: Nakita Martinez MD 06/25/25 13:34
Discharge Summary
Discharge Data
Date of Admission: 06/23/25
Date of Discharge: 06/25/25
Discharge Plan
-
Patient Disposition: Home with Home Care
Discharge Diagnosis/Procedures: Sepsis secondary to UTI
Acute metabolic encephalopathy
Hypotension
Hypokalemia
Dementia
Condition: Fair
Diet: As tolerated
Activity: As tolerated
Driving Restrictions: As prior to admission
Bathing Restrictions: None
Blood Work: CBC, CMP in 1 week (obtain script from PCP)
Referrals:
Judson Alonso MD [Family Provider, Family Practice]
Prescriptions:
New
cefdinir 300 mg capsule
300 mg PO BID Qty: 10 0RF
Continued
cyanocobalamin (vitamin B-12) [Vitamin B-12] 1,000 mcg Tablet
1,000 mcg PO DAILY
cholecalciferol (vitamin D3) [Vitamin D3] 50 mcg (2,000 unit) Capsule
50 mcg PO DAILY
psyllium husk [Metamucil] 0.4 gram Capsule
0.8 g PO HS
aspirin 81 MG tablet,delayed release (DR/EC)
81 mg PO HS
metoprolol succinate 25 MG tablet extended release 24 hr
12.5 mg PO DAILY
rosuvastatin [Crestor] 40 MG tablet
40 mg PO HS
escitalopram oxalate 20 mg Tablet
20 mg PO DAILY
amiodarone 100 mg Tablet
100 mg PO DAILY
Prevagen capsule
1 cap PO DAILY
clopidogrel 75 MG tablet
75 mg PO DAILY
spironolactone 25 MG tablet
12.5 mg PO MOWEFR
Discharge Orders:
Discharge Patient (As Directed); Ordered 06/25/25
Ordered By: Nakita Martinez
Discharge Date and Time
Print Language: CROATIAN
[2025-06-25] MEDS: STERILE WATER FOR INJECTION 10 ML IV (14:00)
[2025-06-25] MEDS: ROCEPHIN 1000 MG IV (14:00)
== END 2025-06-25 14:16 | disposition home health service (06) | DRG 871 ==
LOC: 4 WEST ACU 17:54
PROVIDERS: Clinical Nurse Specialist Family Health; Nurse Practitioner; ADMITTING PHYSICIAN Internal Medicine; ATTENDING PHYSICIAN General Practice; EMERGENCY PHYSICIAN Emergency Medicine; FAMILY PHYSICIAN Family Medicine
DX: A41.9 Sepsis, unspecified organism (principal); G93.41 Metabolic encephalopathy; N39.0 Urinary tract infection, site not specified; I50.22 Chronic systolic (congestive) heart failure; I42.9 Cardiomyopathy, unspecified; J98.11 Atelectasis; R65.20 Severe sepsis without septic shock; E87.6 Hypokalemia; F03.90 Unspecified dementia, unspecified severity, without behavioral disturbance, psychotic disturbance, mood disturbance, and anxiety; I25.10 Atherosclerotic heart disease of native coronary artery without angina pectoris; Z86.73 Personal history of transient ischemic attack (TIA), and cerebral infarction without residual deficits; Z90.79 Acquired absence of other genital organ(s); Z85.46 Personal history of malignant neoplasm of prostate; Z95.810 Presence of automatic (implantable) cardiac defibrillator; Z87.442 Personal history of urinary calculi; Z95.5 Presence of coronary angioplasty implant and graft; Z79.82 Long term (current) use of aspirin; E78.00 Pure hypercholesterolemia, unspecified; N39.498 Other specified urinary incontinence; Z66 Do not resuscitate; R26.2 Difficulty in walking, not elsewhere classified
CPT/HCPCS: 71046; 80053; 81003; 81015; 84484; 85025; 93005; 96374; 97116; 97163; 97166; 99285

== ENCOUNTER 2025-07-13 17:16 | Emergency (ER) | payer MEDICARE, OTHER, SELFPAY ==
[2025-07-13 17:20] VITALS: BP 121/80
[2025-07-13 17:21] VITALS: BP 121/80
[2025-07-13 17:32] LABS: Hematocrit 41.3 % (39.0-52.0); Hemoglobin 13.2 g/dL (13.0-18.0); Mean Corp Hgb Conc. 32.0 g/dL (33.0-37.0); Mean Corpuscular Volume 89.4 fL (80.0-94.0); Nucleated Red Blood Cells % 0 % (-); Platelet Count 197 10^3/uL (130-400); Red Cell Dist. Width 15.4 % (11.5-14.5)
--- NOTE | 2025-07-13 17:38 | ED.GENMED ---
History of Present Illness
<Lorie Andino MD, Resident - Last Filed: 07/13/25 19:08>
General
Chief Complaint: Fatigue
Time Seen by Provider: 07/13/25 17:23
History of Present Illness
History of Present Illness:
85yo M with a hx of dementia, CAD with stent, VT (s/p ablation & pacemaker), prostate cancer (s/p prostatectomy), HFrEF, and recent admission for urosepsis (d/c 06/26) who presents after being difficult to arouse at home.
Pt denies any headache, abdominal pain, n/v, dysuria, constipation, SOB, or CP. Denies any unusual fatigue. Does not remember prior admission or how he got here to the ED today. Conversant, describing past job. Able to state name & but not able
to state date (including year). Knows he's in the hospital.
Per , patient was hard to arouse this afternoon. Was sleeping and did not arouse with her shaking him. Appeared confused when she spoke to him, not responsive as typical. Was worried & called ambulance.
Past History
<Lorie Andino MD, Resident - Last Filed: 07/13/25 19:08>
Past History
ED Past Medical History: Cancer, CVA and Hypercholesterolemia
ED Past Surgical History: Cardiac (Ablation) and Other
Social History
Tobacco: Non-smoker
Alcohol: Occasional
Drug: None
Personal:
Living: with family
Employment: Retired
Review of Systems
<Lorie Andino MD, Resident - Last Filed: 07/13/25 19:08>
Review of Systems
All Other Systems: ROS reviewed and negative except as documented in HPI and ROS
Phy Exam
<Lorie Andino MD, Resident - Last Filed: 07/13/25 19:08>
General Physical Exam
General Presentation: well appearing and no apparent distress
General age: appears stated age
General Skin: warm and dry
General Habitus: normal and elderly
General Mental: alert
Cardiovascular Exam
Cardiovascular Exam: regular rate/rhythm and no edema
Pulmonary Exam
Pulmonary Exam: lungs clear
Gastrointestinal Exam
Gastrointestinal Exam: non tender and soft
Course
<Lorie Andino MD, Resident - Last Filed: 07/13/25 19:08>
Orders/Labs/Results
Orders:
Orders
07/13/25 17:26
CBC/With Diff [Complete Blood Count/With Diff] Urgent
CMP [Comprehensive Metabolic Panel] Urgent
TSH Urgent
Comment: ADD ON
07/13/25 17:55
Electrocardiogram (*1) Urgent
Reason for Study: Abnormal EKG
EKG- Treatment ONCE
07/13/25 17:57
Add On- LAB Urgent
Tests Added?: tsh
07/13/25 18:02
Interrogate Pacemaker- Treatment ONCE
07/13/25 19:28
0.9% Sodium Chloride 500 ml [Nss] 500 ml IV BOLUS
07/13/25 20:11
Urinalysis Reflex To Culture Urgent
Date Specimen was Collected: 07/13/25
Time Specimen was Collected: 20:08
Urine Microscopic Reflex Cult Urgent
Abnormal Lab Results
07/13/25 07/13/25
17:26 20:11
RBC 4.62 L 10^6/uL
(4.70-6.10)
MCHC 32.0 L g/dL
(33.0-37.0)
RDW 15.4 H %
(11.5-14.5)
Absolute Monos (auto) 0.7 H 10^3/uL
(0.1-0.6)
Monocytes % 10.8 H %
(1.7-9.3)
Carbon Dioxide 31 H mmol/L
(22-30)
Ur Occult Blood Reflex 4+ A
(Negative)
Urine RBC >100 A /HPF
(0-2)
Urine Bacteria (Reflex) Few A
(Negative)
Urine Albumin (Reflex) 3+ A
(Neg - Trace)
07/13/25 17:26
07/13/25 17:26
Vital Signs
Initial and Last Documented VS:
Initial Vital Signs
Temp Pulse Resp BP Pulse Ox
97.6 F 74 20 121/80 98
07/13/25 17:20 07/13/25 17:20 07/13/25 17:20 07/13/25 17:20 07/13/25 17:20
Last Documented Vital Signs
Temp Pulse Resp BP Pulse Ox
97.6 F 63 0 111/64 97
07/13/25 17:20 07/13/25 19:30 07/13/25 19:30 07/13/25 19:00 07/13/25 19:30
<Rachid Mattson, DO - Last Filed: 07/13/25 20:36>
Orders/Labs/Results
Orders:
Orders
07/13/25 17:26
CBC/With Diff [Complete Blood Count/With Diff] Urgent
CMP [Comprehensive Metabolic Panel] Urgent
TSH Urgent
Comment: ADD ON
07/13/25 17:55
Electrocardiogram (*1) Urgent
Reason for Study: Abnormal EKG
EKG- Treatment ONCE
07/13/25 17:57
Add On- LAB Urgent
Tests Added?: tsh
07/13/25 18:02
Interrogate Pacemaker- Treatment ONCE
07/13/25 19:28
0.9% Sodium Chloride 500 ml [Nss] 500 ml IV BOLUS
07/13/25 20:11
Urinalysis Reflex To Culture Urgent
Date Specimen was Collected: 07/13/25
Time Specimen was Collected: 20:08
Urine Microscopic Reflex Cult Urgent
Abnormal Lab Results
07/13/25 07/13/25
17:26 20:11
RBC 4.62 L 10^6/uL
(4.70-6.10)
MCHC 32.0 L g/dL
(33.0-37.0)
RDW 15.4 H %
(11.5-14.5)
Absolute Monos (auto) 0.7 H 10^3/uL
(0.1-0.6)
Monocytes % 10.8 H %
(1.7-9.3)
Carbon Dioxide 31 H mmol/L
(22-30)
Ur Occult Blood Reflex 4+ A
(Negative)
Urine RBC >100 A /HPF
(0-2)
Urine Bacteria (Reflex) Few A
(Negative)
Urine Albumin (Reflex) 3+ A
(Neg - Trace)
07/13/25 17:26
07/13/25 17:26
Vital Signs
Initial and Last Documented VS:
Initial Vital Signs
Temp Pulse Resp BP Pulse Ox
97.6 F 74 20 121/80 98
07/13/25 17:20 07/13/25 17:20 07/13/25 17:20 07/13/25 17:20 07/13/25 17:20
Last Documented Vital Signs
Temp Pulse Resp BP Pulse Ox
97.6 F 63 0 111/64 97
07/13/25 17:20 07/13/25 19:30 07/13/25 19:30 07/13/25 19:00 07/13/25 19:30
<Lorie Andino MD, Resident - Last Filed: 07/13/25 19:08>
MDM/Problems Addressed
Differential Diagnosis Includes:
Dementia, confusion s/p nap & recent hospitalization
Electrolyte imbalance, hyponatremia
Hypothyroidism
Occult infection (e.g. UTI, PNA) - less likely given afebrile, no complaints
Arrhythmia - unlikely given paced rhythm
MDM/Problems Addressed:
Plan:
- CBC, CMP
- TSH, T3/T4
- EKG
- UA w reflex to culture
<Lorie Andino MD, Resident - Last Filed: 07/13/25 19:08>
*Pulse Oximetry
SaO2: 98
Oxygen Mode of Delivery: Room air
<Rachid Mattson, DO - Last Filed: 07/13/25 20:36>
*Pulse Oximetry
Patient hypoxic: no
*Critical Care Note
Total Time (30-74mins, 75-104mins- exclusive of procedures): Not Applicable
<Lorie Andino MD, Resident - Last Filed: 07/13/25 19:08>
Update Note
Update Note:
Update:
CBC/CMP unremarkable
EKG with new PVCs, otherwise unremarkable, paced rhythm
TSH wnl
Update:
interrogated pacemaker device, no events recorded
ED Attending Note
<Lorie Andino MD, Resident - Last Filed: 07/13/25 19:08>
-
Portions of this chart may have been created with voice recognition software.� Occasional wrong word or��sound alike� substitutions may have occurred due to the inherent limitations of voice recognition software.
<Rachid Mattson, DO - Last Filed: 07/13/25 20:36>
ED Attending Note
Patient seen and examined by attending physician: Yes
I performed a history and physical exam of patient and discussed management with resident, I reviewed resident's note and agree with documented findings and plan of care.: Yes
ED Attending Note:
Seen with resident examined independently discussed with at bedside pleasant elderly male apparently was difficult to arouse today recent admission with sepsis, for UTI, here vital signs are stable he has a pacemaker labs are noted urine is
pending
Will interrogate his device check urinalysis, I see any obvious issues that would necessitate admission
8:35 PM update urinalysis noted, red cells just a few white cells will send a culture think he can be discharged
Discharge Plan
Departure
Prescriptions:
No Action
cyanocobalamin (vitamin B-12) [Vitamin B-12] 1,000 mcg Tablet
1,000 mcg PO DAILY
cholecalciferol (vitamin D3) [Vitamin D3] 50 mcg (2,000 unit) Capsule
50 mcg PO DAILY
psyllium husk [Metamucil] 0.4 gram Capsule
0.8 g PO HS
aspirin 81 MG tablet,delayed release (DR/EC)
81 mg PO HS
metoprolol succinate 25 MG tablet extended release 24 hr
12.5 mg PO DAILY
rosuvastatin [Crestor] 40 MG tablet
40 mg PO HS
escitalopram oxalate 20 mg Tablet
20 mg PO DAILY
amiodarone 100 mg Tablet
100 mg PO DAILY
Prevagen capsule
1 cap PO DAILY
clopidogrel 75 MG tablet
75 mg PO DAILY
spironolactone 25 MG tablet
12.5 mg PO MOWEFR
cefdinir 300 mg capsule
300 mg PO BID Qty: 10 0RF
Referrals:
NONE,* [Active, Internal Medicine]
Interventions
Interventions:
*Risk Screen - Suicide Last Done: 07/13/25 17:20
*General Assessment Last Done: 07/13/25 17:20
*Neglect/Abuse Screening Last Done: 07/13/25 17:20
*ED- Fall Risk Assessment Last Done: 07/13/25 17:20
*ED COVID-19 Vaccine History Last Done: 07/13/25 17:20
*ED Influenza Vaccine History Last Done: 07/13/25 17:20
Discharge Date and Time
Print Language: PERUVIAN
[2025-07-13 17:49] LABS: ALT (SGPT) 23 U/L (0-50); AST (SGOT) 30 U/L (17-59); Albumin 4.2 g/dl (3.5-5.0); Alkaline Phosphatase 62 U/L (38-126); Blood Urea Nitrogen 14 mg/dl (9-20); Calcium 9.3 mg/dl (8.4-10.2); Carbon Dioxide 31 mmol/L (22-30); Chloride 102 mmol/L (98-107); Estimated Creatinine Clearance 50 ml/min; Glucose 93 mg/dl (70-99); Potassium 4.3 mmol/L (3.5-5.1); Sodium 137 mmol/L (135-145); Total Protein 7.6 g/dl (6.3-8.2); eGFR > 60.00
[2025-07-13 18:00] VITALS: BP 113/68
[2025-07-13 18:40] LABS: TSH 4.24 uIU/ml (0.47-4.68)
[2025-07-13 19:00] VITALS: BP 111/64
[2025-07-13 20:16] LABS: Urine Character Cloudy (Clear)
[2025-07-13 20:26] LABS: Urine Red Blood Cell >100 /HPF (0-2); Urine White Cell 0-2 /HPF (0-5)
[2025-07-13] MEDS: NSS 500 IV (20:38)
--- NOTE | 2025-07-13 20:43 | ED.GENMED ---
History of Present Illness
General
Chief Complaint: Fatigue
Time Seen by Provider: 07/13/25 17:23
Past History
Past History
ED Past Medical History: Cancer, CVA and Hypercholesterolemia
ED Past Surgical History: Cardiac (Ablation) and Other
Social History
Tobacco: Non-smoker
Alcohol: Occasional
Drug: None
Personal:
Living: with family
Employment: Retired
Course
Orders/Labs/Results
Orders:
Orders
07/13/25 17:26
CBC/With Diff [Complete Blood Count/With Diff] Urgent
CMP [Comprehensive Metabolic Panel] Urgent
TSH Urgent
Comment: ADD ON
07/13/25 17:55
Electrocardiogram (*1) Urgent
Reason for Study: Abnormal EKG
EKG- Treatment ONCE
07/13/25 17:57
Add On- LAB Urgent
Tests Added?: tsh
07/13/25 18:02
Interrogate Pacemaker- Treatment ONCE
07/13/25 19:28
0.9% Sodium Chloride 500 ml [Nss] 500 ml IV BOLUS
07/13/25 20:11
Urinalysis Reflex To Culture Urgent
Date Specimen was Collected: 07/13/25
Time Specimen was Collected: 20:08
Urine Microscopic Reflex Cult Urgent
Urine Culture Urgent
SUHAS Source: U
Specimen Description:
Date Specimen was Collected: 07/13/25
Time Specimen was Collected: 20:08
Comment: ADDON
07/13/25 20:36
Add On- LAB Urgent
Tests Added?: urine culture
Abnormal Lab Results
07/13/25 07/13/25
17:26 20:11
RBC 4.62 L 10^6/uL
(4.70-6.10)
MCHC 32.0 L g/dL
(33.0-37.0)
RDW 15.4 H %
(11.5-14.5)
Absolute Monos (auto) 0.7 H 10^3/uL
(0.1-0.6)
Monocytes % 10.8 H %
(1.7-9.3)
Carbon Dioxide 31 H mmol/L
(22-30)
Ur Occult Blood Reflex 4+ A
(Negative)
Urine RBC >100 A /HPF
(0-2)
Urine Bacteria (Reflex) Few A
(Negative)
Urine Albumin (Reflex) 3+ A
(Neg - Trace)
07/13/25 17:26
07/13/25 17:26
Vital Signs
Initial and Last Documented VS:
Initial Vital Signs
Temp Pulse Resp BP Pulse Ox
97.6 F 74 20 121/80 98
07/13/25 17:20 07/13/25 17:20 07/13/25 17:20 07/13/25 17:20 07/13/25 17:20
Last Documented Vital Signs
Temp Pulse Resp BP Pulse Ox
97.6 F 63 0 111/64 97
07/13/25 17:20 07/13/25 19:30 07/13/25 19:30 07/13/25 19:00 07/13/25 19:30
*Pulse Oximetry
SaO2: 97
Oxygen Mode of Delivery: Room air
Update Note
Update Note:
UA results not c/f occult UTI
ED Attending Note
-
Portions of this chart may have been created with voice recognition software.� Occasional wrong word or��sound alike� substitutions may have occurred due to the inherent limitations of voice recognition software.
Discharge Plan
Departure
Patient Disposition: Home (Routine Discharge)
Date of Disposition: 07/13/25
Time of Disposition: 20:37
Condition: Good
Discharge Problem:
Fatigue
Instructions: Fatigue (DC)
Prescriptions:
No Action
cyanocobalamin (vitamin B-12) [Vitamin B-12] 1,000 mcg Tablet
1,000 mcg PO DAILY
cholecalciferol (vitamin D3) [Vitamin D3] 50 mcg (2,000 unit) Capsule
50 mcg PO DAILY
psyllium husk [Metamucil] 0.4 gram Capsule
0.8 g PO HS
aspirin 81 MG tablet,delayed release (DR/EC)
81 mg PO HS
metoprolol succinate 25 MG tablet extended release 24 hr
12.5 mg PO DAILY
rosuvastatin [Crestor] 40 MG tablet
40 mg PO HS
escitalopram oxalate 20 mg Tablet
20 mg PO DAILY
amiodarone 100 mg Tablet
100 mg PO DAILY
Prevagen capsule
1 cap PO DAILY
clopidogrel 75 MG tablet
75 mg PO DAILY
spironolactone 25 MG tablet
12.5 mg PO MOWEFR
cefdinir 300 mg capsule
300 mg PO BID Qty: 10 0RF
Referrals:
NONE,* [Active, Internal Medicine]
Interventions
Interventions:
*Risk Screen - Suicide Last Done: 07/13/25 17:20
*General Assessment Last Done: 07/13/25 17:20
*Neglect/Abuse Screening Last Done: 07/13/25 17:20
*ED- Fall Risk Assessment Last Done: 07/13/25 17:20
*ED COVID-19 Vaccine History Last Done: 07/13/25 17:20
*ED Influenza Vaccine History Last Done: 07/13/25 17:20
Discharge Date and Time
Print Language: GABONESE
== END 2025-07-13 21:23 | disposition home or self-care (01) ==
LOC: EMR 17:16
PROVIDERS: EMERGENCY PHYSICIAN Emergency Medicine; FAMILY PHYSICIAN Family Medicine
DX: R53.1 Weakness (principal); R53.83 Other fatigue; F03.90 Unspecified dementia, unspecified severity, without behavioral disturbance, psychotic disturbance, mood disturbance, and anxiety; I25.10 Atherosclerotic heart disease of native coronary artery without angina pectoris; E78.00 Pure hypercholesterolemia, unspecified; I49.3 Ventricular premature depolarization; I50.22 Chronic systolic (congestive) heart failure; Z45.018 Encounter for adjustment and management of other part of cardiac pacemaker; Z86.73 Personal history of transient ischemic attack (TIA), and cerebral infarction without residual deficits; Z90.79 Acquired absence of other genital organ(s); Z95.5 Presence of coronary angioplasty implant and graft
CPT/HCPCS: 99283; 80053; 81003; 81015; 84443; 85025; 87086; 93005